=== PATIENT | male | born 1970 | race Caucasian/White ===

== ENCOUNTER 2017-05-16 20:18 | Inpatient (IN) | payer MEDICAID ==
[2017-05-16 20:19] VITALS: BMI 27.2
--- NOTE | 2017-05-16 20:49 | ED PDOC ---
HPI: SOB/CHF/COPD History Per: Patient <Socorro Adhikari - Last Filed: 05/16/17 22:02> <Darci Briseno - Last Filed: 05/17/17 04:58> Time Seen by Provider: 05/16/17 20:24 Chief Complaint (Nursing): Shortness Of Breath Additional Complaint(s): 46M BIBA for LEFT chest pain that he reports is sharp and worsens with deep inspiration with associated dizziness, SOB, and headache. He denies fever, chills, cough, N, V, and last BM today. Recently at [facility] for chest pain and underwent abdominal paracentesis for 4L. PMH: DM, HTN, AICD, stent (15yrs ago), Liver cirrhosis PSH: AICD, Appendectomy ALL: NKDA PREETHI: No Homeless Smoke: 10-12cigs/day Alcohol: 3-4 beers, 1.5 pints of vodka (Socorro Adhikari) Past Medical History - Medical History PMH: CAD, CHF, COPD, Diabetes, Emphysema, HTN, Hypercholesterolemia, Hyperlipidemia, Peripheral Edema Denies: Chronic Kidney Disease - Surgical History Surgical History: Appendectomy, Coronary Stent (15 yrs ago), Pacemaker (AICD Left) - Family History Family History: States: Unknown Family Hx - Immunization History Hx Tetanus Toxoid Vaccination: Yes Hx Influenza Vaccination: Yes Hx Pneumococcal Vaccination: Yes <Socorro Adhikari - Last Filed: 05/16/17 22:02> <Darci Briseno - Last Filed: 05/17/17 04:58> Vital Signs: Last Vital Signs Temp 97.7 F 05/16/17 23:15 Pulse 70 05/16/17 23:38 Resp 10 L 05/16/17 23:38 BP 94/60 L 05/16/17 23:15 Pulse Ox 97 05/16/17 23:38 - Home Medications Home Medications: Ambulatory Orders Medication Instructions Recorded No Known Home Med 05/16/17 - Allergies Allergies/Adverse Reactions: Allergies Allergy/AdvReac Type Severity Reaction Status Date / Time No Known Allergies Allergy Verified 05/11/17 19:18 Curb-65 Severity Score - CURB-65 Severity Score Confusion: No Bun >19mg/dl (>7mmol/L): No Respiratory Rate greater than/equal to 30: No Systolic BP <90 or Diastolic BP less than/equal 60mmHg: Yes Age >64: No Curb-65 Score: 1 Percentage 30-day mortality: 2.7% <NicolaSocorro zhang - Last Filed: 05/16/17 22:02> Wells Criteria for PE - Wells Criteria for Pulmonary Embolism Clinical Signs and Symptoms of DVT: No P.E is #1 Diagnosis, or Equally Likely: No Heart Rate >100: Yes Immobilization at least 3 days;Surgery previous 4 weeks: No Previous, objectively diagnosed PE or DVT: No Hemoptysis: No Malignancy w/treatment within 6 months, or palliative: No Total Score: 1.5 <NicolaleathaSocorro - Last Filed: 05/16/17 22:02> Review of Systems Constitutional: Negative for: Fever, Chills Cardiovascular: Positive for: Chest Pain (sharp, radiating, worse with inspiration). Negative for: Palpitations Respiratory: Positive for: Pleuritic Pain ( ). Negative for: Cough Gastrointestinal: Positive for: Abdominal Pain (mild, right-sided with fluid wave). Negative for: Nausea, Vomiting Genitourinary Male: Negative for: Dysuria Musculoskeletal: Positive for: Neck Pain, Shoulder Pain Neurological: Negative for: Confusion <NicolaleathaSocorro - Last Filed: 05/16/17 22:02> Physical Exam - Reviewed Vital Signs Reviewed: Yes (improving) - Physical Exam Appears: Positive for: Non-toxic, No Acute Distress Head Exam: Positive for: ATRAUMATIC, NORMAL INSPECTION Skin: Positive for: Warm, Dry Eye Exam: Positive for: EOMI, PERRL, Nystagmus (horizontal) ENT: Positive for: Other (Alcohol on breath) Neck: Positive for: Supple Cardiovascular/Chest: Positive for: Chest Non Tender. Negative for: Regular Rate, Rhythm (AICD), JVD Respiratory: Positive for: Normal Breath Sounds. Negative for: Rales, Wheezing , Respiratory Distress Pulses-Dorsalis Pedis (L): 2+ Pulses-Dorsalis Pedis (R): 2+ Pulses-Post. Tibialis (L): 2+ Pulses-Post. Tibialis (R): 2+ Gastrointestinal/Abdominal: Positive for: Bowel Sounds, Soft, Tenderness (mild) , Asicites. Negative for: Guarding, Rebound, Hernia Extremity: Positive for: Pedal Edema (pitting 1+, b/l up to knee), Capillary Refill Neurologic/Psych: Positive for: Alert (intoxicated) <Socorro Adhikari - Last Filed: 05/16/17 22:02> - Laboratory Results Result Diagrams: 05/16/17 20:40 05/16/17 20:40 - ECG O2 Sat by Pulse Oximetry: 94 <Socorro Adhikari - Last Filed: 05/16/17 22:02> - Laboratory Results Result Diagrams: 05/16/17 20:40 05/16/17 20:40 - Critical Care Total Time (In Min): 30 <Darci Briseno - Last Filed: 05/17/17 04:58> Medical Decision Making <Socorro Adhikari - Last Filed: 05/16/17 22:02> <Darci Briseno - Last Filed: 05/17/17 04:58> Medical Decision MakinM chronic alcoholic abuse BIBA for LEFT chest pain and hypotension. Patient is intoxicated, but given current SIRS will evaluate for infectious vs. volume depletion secondary to intoxication. - CBC, PT/PTT/INR, CMP, Ammonia, BNP, Troponin, Utox/UA - CXR - 1L NS bolus - EKG CXR: when compared to 05/11/17 no significant changes. Alcohol: 255 BP improved to baseline with fluid bolus, but still unable to provide urine sample BNP elevated Ammonia WNL (Socorro Adhikari) Disposition - Patient ED Disposition Is Patient to be Admitted: Yes Discussed With Dr.: William Kuo Comment: Spoke with Dr Mckenna as well. Doctor Will See Patient In The: Hospital Counseled Patient/Family Regarding: Studies Performed - Disposition Disposition Time: 21:55 - Pt Status Changed To: Hospital Disposition Of: Inpatient - Admit Certification Admit to Inpatient:: After my assessment, the patient will require hospitalization for at least two midnights. This is because of the severity of symptoms shown, intensity of services needed, and/or the medical risk in this patient being treated as an outpatient. <Socorro Adhikari - Last Filed: 05/16/17 22:02> <Darci Briseno - Last Filed: 05/17/17 04:58> - Clinical Impression Clinical Impression: Chest pain, Alcohol intoxication, Chest pain, Ascites due to alcoholic cirrhosis - Disposition Condition: IMPROVED
[2017-05-16 20:56] LABS: BASO # 0.1 K/uL (0.0-0.2); BASO % 1.2 % (0.0-2.0); EOS # 0.2 K/uL (0.0-0.7); EOS % 3.5 % (0.0-4.0); HEMOGLOBIN 11.2 g/dL (12.0-18.0); LYMPH % 20.5 % (20.0-40.0); MEAN CELL VOLUME 101.9 fl (80.0-94.0); MEAN CORPUSCULAR HGB CONC 34.3 g/dL (33.0-37.0); MEAN PLATELET VOLUME 8.5 fl (7.2-11.7); MONO # 0.8 K/uL (0.0-0.8); MONO % 17.7 % (0.0-10.0); NEUT # 2.7 K/uL (1.8-7.0); NEUT % 57.1 % (50.0-75.0); NRBC % 0.1 % (0.0-0.0); RBC 3.21 Mil/uL (4.40-5.90); RED CELL DISTRIBUTION WIDTH 15.9 % (11.5-14.5); WHITE BLOOD COUNT 4.8 K/uL (4.8-10.8)
[2017-05-16] MEDS ORDERED: Sodium Chloride 0.9% 1,000 ML IV SCH (21:00)
[2017-05-16 21:05] LABS: ALB/GLOB RATIO 0.8 (1.0-2.1); ALBUMIN 3.1 g/dL (3.5-5.0); ALT/SGPT 69 U/L (21-72); AST/SGOT 124 U/L (17-59); BLOOD UREA NITROGEN 11 mg/dl (9-20); CALCIUM 8.6 mg/dL (8.4-10.2); GFR AFRICAN-AMERICAN > 60; GFR NON-AFRICAN AMERICAN > 60; LIPASE 223 U/L (23-300)
--- NOTE | 2017-05-16 21:08 | RAD ---
HISTORY: chest pain COMPARISON: None available. TECHNIQUE: Chest, one view. FINDINGS: Examination limited by habitus. LUNGS: Bilateral hilar prominence, right greater than left. No focal consolidation. Please note that chest x-ray has limited sensitivity for the detection of pulmonary masses. PLEURA: No significant pleural effusion identified. No definite pneumothorax . CARDIOVASCULAR: Single lead left-sided AICD. Heart size appears top normal. OSSEOUS STRUCTURES: No acute osseous abnormality identified. VISUALIZED UPPER ABDOMEN: Unremarkable. OTHER FINDINGS: None. IMPRESSION: Bilateral hilar prominence, right greater than left. Single lead AICD.
--- NOTE | 2017-05-16 21:57 | CP.PCM.CON ---
History of Present Illness - History of Present Illness History of Present Illness: CC: Chest pain, EtOH intoxication, volume depletion History mostly obtained from chart and ER staff as patient did not engage in interview likely 2/2 intoxication. HPI: 46 y/o male with MHx significant for CAD, CHF (EF 29% 3/ Echo) with AICD , DM2, HTN and EtOH abuse with cirrhosis who comes in with sharp mid-sternal CP that is worse with inspiration. Patient has some SOB. Denies f/c/n/v/d. Denies cough/sputum production. Patient does not provide any history and has no complaints. Was at [facility] for CP, and had paracentesis with removal of 4 L. Patient is homeless. ROS: unable to perform as patient refusing to answer Q MHx: CAD, CHF (EF 29% / Echo) with AICD, DM2, HTN and EtOH abuse with cirrhosis SHx: Cath/Stents, AICD, appendectomy, and multiple paracenteses Allergies: NKDA Medications: None FHx: Cannot be obtained Social Hx: Homeless, smokes 10-15 cigs per day, has been drinking for 30+ years , nad has about 1/2-1 pt of vodka daily Past Patient History - Infectious Disease Hx of Infectious Diseases: None - Past Medical History & Family History Past Medical History?: Yes - Past Social History Smoking Status: Heavy Smoker > 10 Cigarettes Daily - CARDIAC Hx Congestive Heart Failure: Yes Hx Hypercholesterolemia: Yes Hx Hypertension: Yes Hx Pacemaker: Yes (AICD Left) Hx Peripheral Edema: Yes - PULMONARY Hx Chronic Obstructive Pulmonary Disease (COPD): Yes Hx Emphysema: Yes - NEUROLOGICAL Hx Neurological Disorder: Yes Hx Dizziness: Yes - HEENT Hx HEENT Problems: No - RENAL Hx Chronic Kidney Disease: No - ENDOCRINE/METABOLIC Hx Endocrine Disorders: Yes Hx Diabetes Mellitus Type 2: Yes - HEMATOLOGICAL/ONCOLOGICAL Hx Blood Disorders: Yes Hx Cirrhosis: Yes - INTEGUMENTARY Hx Dermatological Problems: Yes Other/Comment: Dry scratch ruano/scab Andrew. lower extremeties and nose - MUSCULOSKELETAL/RHEUMATOLOGICAL Hx Falls: Yes - GASTROINTESTINAL Hx Gastrointestinal Disorders: No Hx Nausea: Yes Hx Vomiting: Yes - GENITOURINARY/GYNECOLOGICAL Hx Genitourinary Disorders: No - PSYCHIATRIC Hx Psychophysiologic Disorder: Yes Hx Substance Use: No (etoh abuse-) - SURGICAL HISTORY Hx Appendectomy: Yes Hx Coronary Stent: Yes (15 yrs ago) - ANESTHESIA Hx Anesthesia: Yes Hx Anesthesia Reactions: No Hx Malignant Hyperthermia: No Meds Allergies/Adverse Reactions: Allergies Allergy/AdvReac Type Severity Reaction Status Date / Time No Known Allergies Allergy Verified 05/11/17 19:18 - Medications Medications: Current Medications Sodium Chloride (Sodium Chloride 0.9%) 1,000 mls @ 999 mls/hr IV .Q1H1M KATELYN Stop: 05/16/17 22:00 Last Admin: 05/16/17 21:13 Dose: 999 mls/hr Physical Exam - Constitutional Appears: Unkempt, Older Than Stated Age Additional comments: intoxicated - Head Exam Head Exam: ATRAUMATIC, NORMOCEPHALIC - Eye Exam Eye Exam: EOMI, PERRL - ENT Exam ENT Exam: Mucous Membranes Dry - Neck Exam Neck exam: Positive for: Full Rom - Respiratory Exam Respiratory Exam: Clear to Auscultation Bilateral, NORMAL BREATHING PATTERN - Cardiovascular Exam Cardiovascular Exam: REGULAR RHYTHM, +S1, +S2 - GI/Abdominal Exam GI & Abdominal Exam: Normal Bowel Sounds, Soft - Extremities Exam Extremities exam: Positive for: full ROM, pedal edema - Neurological Exam Neurological exam: Alert, CN II-XII Intact, Oriented x3 Additional comments: patient awakens, but is intoxicated; can answer questions when he feels like - Psychiatric Exam Psychiatric exam: Normal Affect, Normal Mood - Skin Skin Exam: Dry, Warm Results - Vital Signs Recent Vital Signs: Last Vital Signs Temp 98.2 F 05/16/17 20:20 Pulse 72 05/16/17 21:46 Resp 20 05/16/17 20:20 BP 92/58 L 05/16/17 21:46 Pulse Ox 94 L 05/16/17 21:56 - Labs Result Diagrams: 05/16/17 20:40 05/16/17 20:40 Labs: Laboratory Results - last 24 hr 05/16/17 05/16/17 05/16/17 20:40 20:40 20:57 WBC 4.8 RBC 3.21 L Hgb 11.2 L Hct 32.7 L MCV 101.9 H MCH 35.0 H MCHC 34.3 RDW 15.9 H Plt Count 314 MPV 8.5 Neut % (Auto) 57.1 Lymph % (Auto) 20.5 [place] % (Auto) 17.7 H Eos % (Auto) 3.5 Baso % (Auto) 1.2 Neut # 2.7 Lymph # 1.0 [place] # 0.8 Eos # 0.2 Baso # 0.1 Sodium 137 Potassium 4.0 Chloride 109 H Carbon Dioxide 17 L Anion Gap 15 BUN 11 Creatinine 1.1 Est GFR ( Amer) > 60 Est GFR (Non-Af Amer) > 60 Random Glucose 103 Calcium 8.6 Total Bilirubin 1.0 AST 124 H ALT 69 Alkaline Phosphatase 187 H Ammonia 38 NT-Pro-B Natriuret Pep Total Protein 7.2 Albumin 3.1 L Globulin 4.1 H Albumin/Globulin Ratio 0.8 L Lipase 223 Alcohol, Quantitative 255 H 05/16/17 21:20 WBC RBC Hgb Hct MCV MCH MCHC RDW Plt Count MPV Neut % (Auto) Lymph % (Auto) [place] % (Auto) Eos % (Auto) Baso % (Auto) Neut # Lymph # [place] # Eos # Baso # Sodium Potassium Chloride Carbon Dioxide Anion Gap BUN Creatinine Est GFR ( Amer) Est GFR (Non-Af Amer) Random Glucose Calcium Total Bilirubin AST ALT Alkaline Phosphatase Ammonia NT-Pro-B Natriuret Pep 2560 H Total Protein Albumin Globulin Albumin/Globulin Ratio Lipase Alcohol, Quantitative - EKG Data EKG Interpreted by: Myself EKG shows normal: Sinus rhythm Rate: Normal - EKG Data EKG comments: LBBB present from prior EKGs - Imaging and Cardiology Chest x-ray Status: Image reviewed by me (enlarged appearing heart, ICD in place left chest) Assessment & Plan (1) Alcohol intoxication Assessment and Plan: 46 y/o male with multiple medical problems coming in with EtOH intoxication, CP , and volume depletion it appears. 1) CP -Admitting to ICU 2/2 low BP -serial trops -ASA daily 325 2) Vol depletion in setting of EtOH abuse -Will replete with banana bag at low rate given CHF Hx -Repeat EtOH level -Observe for signs of w/d 3) CHF -- appears stable at this time 4) DM2 -- DM2 diet, Accucheck, SSI 5) DVT PPx -- SCDs only Status: Acute (2) Volume depletion Status: Acute (3) Chest pain Status: Acute (4) CHF (congestive heart failure) Status: Chronic (5) Diabetes mellitus Status: Chronic
[2017-05-16 23:00] LABS: ABG ALLEN TEST YES; ARTERIAL BLOOD GAS HCO3 19.9 mmol/L (21-28); ARTERIAL BLOOD GAS O2 CAPACITY 14.9 mL/dL (16-24); ARTERIAL BLOOD GAS O2 CONTENT 14.7 ML/dL (15-23); ARTERIAL BLOOD GAS O2 SAT 98.8 % (95-98); ARTERIAL BLOOD GAS PCO2 30 mm/Hg (35-45); ARTERIAL BLOOD GAS PH 7.38 (7.35-7.45); ARTERIAL BLOOD GAS PO2 101 mm/Hg (80-100); ARTERIAL BLOOD GAS TCO2 18.6 mmol/L (22-28)
[2017-05-16 23:06] LABS: TROPONIN I 0.022 ng/mL (0.00-0.120)
[2017-05-16 23:10] LABS: URINE BACTERIA RARE (<OCC); URINE BILIRUBIN NEGATIVE (NEGATIVE); URINE BLOOD NEGATIVE (NEGATIVE); URINE CLARITY CLEAR (Clear); URINE COLOR YELLOW (YELLOW); URINE GLUCOSE (UA) NEG (Normal); URINE HYALINE CAST 0-2 /hpf (0-2); URINE LEUKOCYTE ESTERASE NEG Leu/uL (Negative); URINE NITRATE NEGATIVE (NEGATIVE); URINE PROTEIN NEGATIVE (NEGATIVE); URINE UROBILINOGEN 0.2-1.0 mg/dL (0.2-1.0)
[2017-05-16] MEDS ORDERED: Multivitamin (MVI) 10 ML, Thiamine 100 MG, Folic Acid 1 MG, Magnesium Sulfate 1 GM in S... IV ONE (23:20)
[2017-05-16 23:28] LABS: BARBITURATES, UR NEGATIVE (NEGATIVE); BENZODIAZEPINES, UR NEGATIVE (NEGATIVE); OPIATES, UR NEGATIVE (NEGATIVE); PHENCYCLIDINE, UR NEGATIVE (NEGATIVE)
[2017-05-17 01:15] LABS: PARTIAL THROMBOPLASTIN TIME 34.2 Seconds (25.6-37.1); PROTHROMBIN TIME 11.6 Seconds (9.8-13.1)
[2017-05-17] MEDS ORDERED: Sodium Chloride 0.9% 250 ML IV ONE (04:42)
[2017-05-17] MEDS ORDERED: Insulin Lispro (humaLOG) 100 Units/ml Inj SC SCH (07:30)
[2017-05-17 08:23] LABS: HEMOGLOBIN 10.3 g/dL (12.0-18.0); MEAN CELL VOLUME 104.6 fl (80.0-94.0); MEAN CORPUSCULAR HEMOGLOBIN 34.5 pg (27.0-31.0); RBC 2.98 Mil/uL (4.40-5.90); RED CELL DISTRIBUTION WIDTH 15.7 % (11.5-14.5); WHITE BLOOD COUNT 3.9 K/uL (4.8-10.8)
[2017-05-17 08:25] VITALS: TEMP 98
[2017-05-17 08:28] LABS: ALBUMIN 2.7 g/dL (3.5-5.0); ALT/SGPT 60 U/L (21-72); AST/SGOT 116 U/L (17-59); BLOOD UREA NITROGEN 9 mg/dl (9-20); CALCIUM 8.3 mg/dL (8.4-10.2); GFR AFRICAN-AMERICAN > 60; GFR NON-AFRICAN AMERICAN > 60
[2017-05-17 08:30] LABS: ALB/GLOB RATIO 0.8 (1.0-2.1)
--- NOTE | 2017-05-17 08:42 | CARD ---
APPROVED REPORT EKG Measurement Heart [id number] <Conclusion> Normal sinus rhythm Left bundle branch block Abnormal ECG
--- NOTE | 2017-05-17 09:48 | CP.CCUPN ---
CCU Subjective - Physician Review Events Since Last Encounter (Free Text): Easily arousable from sleep, does not appear overly anxious nor agitated now, he did receive a dose of Ativan early AM. In no apparent acute distress. BP levels still borderline at 95-98 systolic, HR 70s in sinus, No fever spikes. Refuses supplemental oxygen, but SPo2 98% on RA. No I/Os recorded. ROS: as above, other 10+ system review did not reveal any new pertinent negs or positives. Other PMSFH: All other Nursing and physician documentation reviewed, and no other pertinent information noted relevant to current problems. MAJOR PROBLEMS: 1. ETOH Intoxication / Chronic ETOH Abuse 2. r/o ACS 3. Dehydration / Hypovolemia 4. Chronic Disease Anemia 5. h/o Cardiomyopathy requiring AICD: no overt decompensated CHF now. PLAN: 1. IVF bolus and cautious hydration. 2. Trops negative x 2 so far. 3. Thiamine / Folate supplements 4. Monitor for s/sx ETOH withdrawal. 5. Check Mag, Phosphate levels 6. Maintain normoglycemia CCU Objective - Vital Signs / Intake & Output Vital Signs (Last 4 hours): Vital Signs Temp Pulse Resp BP Pulse Ox 05/17/17 08:00 98.0 F 72 25 H 92/56 L 99 05/17/17 06:00 69 8 L 95/59 L 98 - Physical Exam Physical Exam Limitations: Positive for: Intoxication Head: Positive for: Atraumatic, Normocephalic Pupils: Positive for: PERRL Extroacular Muscles: Positive for: EOMI Conjunctiva: Positive for: Normal Ears: Positive for: Normal Mouth: Positive for: Moist Mucous Membranes. Negative for: Drooling Pharnyx: Positive for: Normal. Negative for: ERYTHEMA, EXUDATE Neck: Positive for: Normal Range of Motion. Negative for: Meningeal Signs, JVD Respiratory/Chest: Positive for: Clear to Auscultation, Decreased Breath Sounds. Negative for: Accessory Muscle Use Cardiovascular: Positive for: Regular Rate and Rhythm, Normal S1, S2. Negative for: Murmurs, Rub Abdomen: Positive for: Distention (+ fluid wave), Normal Bowel Sounds. Negative for: Tenderness Lower Extremity: Positive for: Edema. Negative for: CALF TENDERNESS, Cyanosis Neurological: Positive for: GCS=15, Motor Func Grossly Intact Skin: Positive for: Warm. Negative for: Rashes Psychiatric: Positive for: Alert, Oriented x 3 - Medications Active Medications: Active Medications Generic Name Dose Route Start Last Admin Trade Name Freq PRN Reason Stop Dose Admin Multivitamins/Vitamin C 10 ml/ 1,013.2 mls @ 75 mls/hr 05/16/17 23:20 00:48 Thiamine HCl 100 mg/ Folic IV 05/17/17 12:50 75 mls/hr Acid 1 mg/ Magnesium Sulfate 1 .[id number] ONE Administration gm/ Sodium Chloride Insulin Human Lispro 0 units 05/17/17 07:30 05/17/17 06:59 Humalog SC Not Given ACHS KATELYN Protocol Lorazepam 1 mg 05/16/17 23:55 05/17/17 00:03 Ativan IVP 1 mg Q6H PRN Administration anxiety, tremors, withdrawal - Patient Studies Lab Studies: Lab Studies 05/17/17 05/17/17 05/17/17 Range/Units 06:34 05:30 05:30 WBC 3.9 L (4.8-10.8) K/uL RBC 2.98 L (4.40-5.90) Mil/uL Hgb 10.3 L (12.0-18.0) g/dL Hct 31.2 L (35.0-51.0) % MCV 104.6 H D (80.0-94.0) fl MCH 34.5 H (27.0-31.0) pg MCHC 33.0 (33.0-37.0) g/dL RDW 15.7 H (11.5-14.5) % Plt Count 211 D (130-400) K/uL pCO2 (35-45) mm/Hg pO2 (80-100) mm/Hg HCO3 (21-28) mmol/L ABG pH (7.35-7.45) ABG Total CO2 (22-28) mmol/L ABG O2 Saturation (95-98) % ABG O2 Content (15-23) ML/dL ABG Base Excess (-2.0-3.0) mmol/L ABG Hemoglobin (11.7-17.4) g/dL ABG Carboxyhemoglobin (0.5-1.5) % POC ABG HHb (Measured) (0.0-5.0) % ABG Methemoglobin (0.0-3.0) % ABG O2 Capacity (16-24) mL/dL Prabhakar Test A-a O2 Difference mm/Hg Hgb O2 Saturation (95.0-98.0) % FiO2 % Sodium 141 (132-148) mmol/l Potassium 3.8 (3.6-5.0) MMOL/L Chloride 114 H (98-107) mmol/L Carbon Dioxide 19 L (22-30) mmol/L Anion Gap 12 (10-20) BUN 9 (9-20) mg/dl Creatinine 0.9 (0.8-1.5) mg/dL Est GFR ( Amer) > 60 Est GFR (Non-Af Amer) > 60 POC Glucose (mg/dL) 92 (65-110) mg/dL Random Glucose 86 (75-110) mg/dL Calcium 8.3 L (8.4-10.2) mg/dL Total Bilirubin 0.8 (0.2-1.3) mg/dl AST 116 H (17-59) U/L ALT 60 (21-72) U/L Alkaline Phosphatase 158 H (38-126) U/L Troponin I 0.0200 (0.00-0.120) ng/mL Total Protein 6.3 (6.3-8.2) G/DL Albumin 2.7 L (3.5-5.0) g/dL Globulin 3.6 (2.2-3.9) gm/dL Albumin/Globulin Ratio 0.8 L (1.0-2.1) Urine Color (YELLOW) Urine Clarity (Clear) Urine pH (5.0-8.0) Ur Specific [place] (1.003-1.030) Urine Protein (NEGATIVE) mg/dL Urine Glucose (UA) (Normal) mg/dL Urine Ketones (NEGATIVE) mg/dL Urine Blood (NEGATIVE) Urine Nitrate (NEGATIVE) Urine Bilirubin (NEGATIVE) Urine Urobilinogen (0.2-1.0) mg/dL Ur Leukocyte Esterase (Negative) Sherie/uL Urine RBC (Auto) (0-3) /hpf Urine Microscopic WBC (0-5) /hpf Urine Bacteria (<OCC) Hyaline Casts (0-2) /hpf Urine Opiates Screen (NEGATIVE) Urine Methadone Screen (NEGATIVE) Ur Barbiturates Screen (NEGATIVE) Ur Phencyclidine Scrn (NEGATIVE) Ur Amphetamines Screen (NEGATIVE) U Benzodiazepines Scrn (NEGATIVE) U Oth Cocaine Metabols (NEGATIVE) U Cannabinoids Screen (NEGATIVE) Alcohol, Quantitative 102 H (0-10) mg/dl 05/16/17 05/16/17 05/16/17 Range/Units 23:02 23:02 21:58 WBC (4.8-10.8) K/uL RBC (4.40-5.90) Mil/uL Hgb (12.0-18.0) g/dL Hct (35.0-51.0) % MCV (80.0-94.0) fl MCH (27.0-31.0) pg MCHC (33.0-37.0) g/dL RDW (11.5-14.5) % Plt Count (130-400) K/uL pCO2 30 L (35-45) mm/Hg pO2 101 H (80-100) mm/Hg HCO3 19.9 L (21-28) mmol/L ABG pH 7.38 (7.35-7.45) ABG Total CO2 18.6 L (22-28) mmol/L ABG O2 Saturation 98.8 H (95-98) % ABG O2 Content 14.7 L (15-23) ML/dL ABG Base Excess -6.4 L (-2.0-3.0) mmol/L ABG Hemoglobin 11.0 L (11.7-17.4) g/dL ABG Carboxyhemoglobin 2.2 H (0.5-1.5) % POC ABG HHb (Measured) 1.1 (0.0-5.0) % ABG Methemoglobin 2.8 (0.0-3.0) % ABG O2 Capacity 14.9 L (16-24) mL/dL Prabhakar Test Yes A-a O2 Difference 11.0 mm/Hg Hgb O2 Saturation 93.9 L (95.0-98.0) % FiO2 21.0 % Sodium (132-148) mmol/l Potassium (3.6-5.0) MMOL/L Chloride (98-107) mmol/L Carbon Dioxide (22-30) mmol/L Anion Gap (10-20) BUN (9-20) mg/dl Creatinine (0.8-1.5) mg/dL Est GFR ( Amer) Est GFR (Non-Af Amer) POC Glucose (mg/dL) (65-110) mg/dL Random Glucose (75-110) mg/dL Calcium (8.4-10.2) mg/dL Total Bilirubin (0.2-1.3) mg/dl AST (17-59) U/L ALT (21-72) U/L Alkaline Phosphatase (38-126) U/L Troponin I (0.00-0.120) ng/mL Total Protein (6.3-8.2) G/DL Albumin (3.5-5.0) g/dL Globulin (2.2-3.9) gm/dL Albumin/Globulin Ratio (1.0-2.1) Urine Color Yellow (YELLOW) Urine Clarity Clear (Clear) Urine pH 6.0 (5.0-8.0) Ur Specific [place] 1.006 (1.003-1.030) Urine Protein Negative (NEGATIVE) mg/dL Urine Glucose (UA) Neg (Normal) mg/dL Urine Ketones Negative (NEGATIVE) mg/dL Urine Blood Negative (NEGATIVE) Urine Nitrate Negative (NEGATIVE) Urine Bilirubin Negative (NEGATIVE) Urine Urobilinogen 0.2-1.0 (0.2-1.0) mg/dL Ur Leukocyte Esterase Neg (Negative) Sherie/uL Urine RBC (Auto) 3 (0-3) /hpf Urine Microscopic WBC 1 (0-5) /hpf Urine Bacteria Rare (<OCC) Hyaline Casts 0-2 (0-2) /hpf Urine Opiates Screen Negative (NEGATIVE) Urine Methadone Screen Negative (NEGATIVE) Ur Barbiturates Screen Negative (NEGATIVE) Ur Phencyclidine Scrn Negative (NEGATIVE) Ur Amphetamines Screen Negative (NEGATIVE) U Benzodiazepines Scrn Negative (NEGATIVE) U Oth Cocaine Metabols Negative (NEGATIVE) U Cannabinoids Screen Negative (NEGATIVE) Alcohol, Quantitative (0-10) mg/dl Laboratory Results - last 24 hr 05/16/17 05/16/17 05/16/17 21:58 23:02 23:02 WBC RBC Hgb Hct MCV MCH MCHC RDW Plt Count pCO2 30 L pO2 101 H HCO3 19.9 L ABG pH 7.38 ABG Total CO2 18.6 L ABG O2 Saturation 98.8 H ABG O2 Content 14.7 L ABG Base Excess -6.4 L ABG Hemoglobin 11.0 L ABG Carboxyhemoglobin 2.2 H POC ABG HHb (Measured) 1.1 ABG Methemoglobin 2.8 ABG O2 Capacity 14.9 L Prabhakar Test Yes A-a O2 Difference 11.0 Hgb O2 Saturation 93.9 L FiO2 21.0 Sodium Potassium Chloride Carbon Dioxide Anion Gap BUN Creatinine Est GFR ( Amer) Est GFR (Non-Af Amer) POC Glucose (mg/dL) Random Glucose Calcium Total Bilirubin AST ALT Alkaline Phosphatase Troponin I Total Protein Albumin Globulin Albumin/Globulin Ratio Urine Color Yellow Urine Clarity Clear Urine pH 6.0 Ur Specific [place] 1.006 Urine Protein Negative Urine Glucose (UA) Neg Urine Ketones Negative Urine Blood Negative Urine Nitrate Negative Urine Bilirubin Negative Urine Urobilinogen 0.2-1.0 Ur Leukocyte Esterase Neg Urine RBC (Auto) 3 Urine Microscopic WBC 1 Urine Bacteria Rare Hyaline Casts 0-2 Urine Opiates Screen Negative Urine Methadone Screen Negative Ur Barbiturates Screen Negative Ur Phencyclidine Scrn Negative Ur Amphetamines Screen Negative U Benzodiazepines Scrn Negative U Oth Cocaine Metabols Negative U Cannabinoids Screen Negative Alcohol, Quantitative 05/17/17 05/17/17 05/17/17 05:30 05:30 06:34 WBC 3.9 L RBC 2.98 L Hgb 10.3 L Hct 31.2 L MCV 104.6 H D MCH 34.5 H MCHC 33.0 RDW 15.7 H Plt Count 211 D pCO2 pO2 HCO3 ABG pH ABG Total CO2 ABG O2 Saturation ABG O2 Content ABG Base Excess ABG Hemoglobin ABG Carboxyhemoglobin POC ABG HHb (Measured) ABG Methemoglobin ABG O2 Capacity Prabhakar Test A-a O2 Difference Hgb O2 Saturation FiO2 Sodium 141 Potassium 3.8 Chloride 114 H Carbon Dioxide 19 L Anion Gap 12 BUN 9 Creatinine 0.9 Est GFR ( Amer) > 60 Est GFR (Non-Af Amer) > 60 POC Glucose (mg/dL) 92 Random Glucose 86 Calcium 8.3 L Total Bilirubin 0.8 AST 116 H ALT 60 Alkaline Phosphatase 158 H Troponin I 0.0200 Total Protein 6.3 Albumin 2.7 L Globulin 3.6 Albumin/Globulin Ratio 0.8 L Urine Color Urine Clarity Urine pH Ur Specific [place] Urine Protein Urine Glucose (UA) Urine Ketones Urine Blood Urine Nitrate Urine Bilirubin Urine Urobilinogen Ur Leukocyte Esterase Urine RBC (Auto) Urine Microscopic WBC Urine Bacteria Hyaline Casts Urine Opiates Screen Urine Methadone Screen Ur Barbiturates Screen Ur Phencyclidine Scrn Ur Amphetamines Screen U Benzodiazepines Scrn U Oth Cocaine Metabols U Cannabinoids Screen Alcohol, Quantitative 102 H Radiology Interpretations (Free Text): (my interp) Clear lung mckeon, AICD overlying Left upper chest, no gross consolidation. Fingerstick Blood Sugar Results: 96 Review of Systems - Review of Systems Review of Systems: As above. Critical Care Progress Note - Extremities/Vascular Does the Patient have a Central Venous Catheter?: No Does the Patient need a Central Venous Catheter?: No Does the Patient have a Fontenot Catheter?: No Does the Patient need a Fontenot Catheter?: No - Prophylaxis GI Prophylaxis GI: PPI - Prophylaxis DVT Prophylaxis DVT: SCDs - Nutrition Nutrition: Nutrition Category Date Time Status Consistent Carbohydrate [DIET] Diets 05/16/17 Breakfast Active
[2017-05-17 10:08] VITALS: BP 106/76; PULSE 90; RESP 19; O2SAT 100
--- NOTE | 2017-05-17 10:42 | CP.PCM.DIS ---
Provider - Provider Date of Admission: 05/16/17 21:45 Attending physician: Dg Mckenna MD Time Spent in preparation of Discharge (in minutes): 32 Diagnosis - Discharge Diagnosis (1) Alcohol intoxication Status: Acute (2) Ascites due to alcoholic cirrhosis Status: Acute (3) Chest pain Status: Acute (4) Volume depletion Status: Acute (5) Hypotension Status: Acute (6) Diabetes mellitus Status: Chronic (7) HTN (hypertension) Status: Chronic Hospital Course - Lab Results Lab Results: Most Recent Lab Values WBC 3.9 K/uL (4.8-10.8) L 05/17/17 05:30 RBC 2.98 Mil/uL (4.40-5.90) L 05/17/17 05:30 Hgb 10.3 g/dL (12.0-18.0) L 05/17/17 05:30 Hct 31.2 % (35.0-51.0) L 05/17/17 05:30 MCV 104.6 fl (80.0-94.0) H D 05/17/17 05:30 MCH 34.5 pg (27.0-31.0) H 05/17/17 05:30 MCHC 33.0 g/dL (33.0-37.0) 05/17/17 05:30 RDW 15.7 % (11.5-14.5) H 05/17/17 05:30 Plt Count 211 K/uL (130-400) D 05/17/17 05:30 MPV 8.5 fl (7.2-11.7) 05/16/17 20:40 Neut % (Auto) 57.1 % (50.0-75.0) 05/16/17 20:40 Lymph % (Auto) 20.5 % (20.0-40.0) 05/16/17 20:40 [place] % (Auto) 17.7 % (0.0-10.0) H 05/16/17 20:40 Eos % (Auto) 3.5 % (0.0-4.0) 05/16/17 20:40 Baso % (Auto) 1.2 % (0.0-2.0) 05/16/17 20:40 Neut # 2.7 K/uL (1.8-7.0) 05/16/17 20:40 Lymph # 1.0 K/uL (1.0-4.3) 05/16/17 20:40 [place] # 0.8 K/uL (0.0-0.8) 05/16/17 20:40 Eos # 0.2 K/uL (0.0-0.7) 05/16/17 20:40 Baso # 0.1 K/uL (0.0-0.2) 05/16/17 20:40 PT 11.6 Seconds (9.8-13.1) 05/16/17 20:40 INR 1.0 (0.9-1.2) 05/16/17 20:40 APTT 34.2 Seconds (25.6-37.1) 05/16/17 20:40 pCO2 30 mm/Hg (35-45) L 05/16/17 21:58 pO2 101 mm/Hg (80-100) H 05/16/17 21:58 HCO3 19.9 mmol/L (21-28) L 05/16/17 21:58 ABG pH 7.38 (7.35-7.45) 05/16/17 21:58 ABG Total CO2 18.6 mmol/L (22-28) L 05/16/17 21:58 ABG O2 Saturation 98.8 % (95-98) H 05/16/17 21:58 ABG O2 Content 14.7 ML/dL (15-23) L 05/16/17 21:58 ABG Base Excess -6.4 mmol/L (-2.0-3.0) L 05/16/17 21:58 ABG Hemoglobin 11.0 g/dL (11.7-17.4) L 05/16/17 21:58 ABG Carboxyhemoglobin 2.2 % (0.5-1.5) H 05/16/17 21:58 POC ABG HHb (Measured) 1.1 % (0.0-5.0) 05/16/17 21:58 ABG Methemoglobin 2.8 % (0.0-3.0) 05/16/17 21:58 ABG O2 Capacity 14.9 mL/dL (16-24) L 05/16/17 21:58 Prabhakar Test Yes 05/16/17 21:58 A-a O2 Difference 11.0 mm/Hg 05/16/17 21:58 Hgb O2 Saturation 93.9 % (95.0-98.0) L 05/16/17 21:58 FiO2 21.0 % 05/16/17 21:58 Sodium 141 mmol/l (132-148) 05/17/17 05:30 Potassium 3.8 MMOL/L (3.6-5.0) 05/17/17 05:30 Chloride 114 mmol/L (98-107) H 05/17/17 05:30 Carbon Dioxide 19 mmol/L (22-30) L 05/17/17 05:30 Anion Gap 12 (10-20) 05/17/17 05:30 BUN 9 mg/dl (9-20) 05/17/17 05:30 Creatinine 0.9 mg/dL (0.8-1.5) 05/17/17 05:30 Est GFR ( Amer) > 60 05/17/17 05:30 Est GFR (Non-Af Amer) > 60 05/17/17 05:30 POC Glucose (mg/dL) 92 mg/dL (65-110) 05/17/17 06:34 Random Glucose 86 mg/dL (75-110) 05/17/17 05:30 Calcium 8.3 mg/dL (8.4-10.2) L 05/17/17 05:30 Total Bilirubin 0.8 mg/dl (0.2-1.3) 05/17/17 05:30 AST 116 U/L (17-59) H 05/17/17 05:30 ALT 60 U/L (21-72) 05/17/17 05:30 Alkaline Phosphatase 158 U/L (38-126) H 05/17/17 05:30 Ammonia 38 umo/L (16-60) 05/16/17 20:57 Troponin I 0.0200 ng/mL (0.00-0.120) 05/17/17 05:30 NT-Pro-B Natriuret Pep 2560 pg/ml (0-450) H 05/16/17 21:20 Total Protein 6.3 G/DL (6.3-8.2) 05/17/17 05:30 Albumin 2.7 g/dL (3.5-5.0) L 05/17/17 05:30 Globulin 3.6 gm/dL (2.2-3.9) 05/17/17 05:30 Albumin/Globulin Ratio 0.8 (1.0-2.1) L 05/17/17 05:30 Lipase 223 U/L (23-300) 05/16/17 20:40 Urine Color Yellow (YELLOW) 05/16/17 23:02 Urine Clarity Clear (Clear) 05/16/17 23:02 Urine pH 6.0 (5.0-8.0) 05/16/17 23:02 Ur Specific [place] 1.006 (1.003-1.030) 05/16/17 23:02 Urine Protein Negative mg/dL (NEGATIVE) 05/16/17 23:02 Urine Glucose (UA) Neg mg/dL (Normal) 05/16/17 23:02 Urine Ketones Negative mg/dL (NEGATIVE) 05/16/17 23:02 Urine Blood Negative (NEGATIVE) 05/16/17 23:02 Urine Nitrate Negative (NEGATIVE) 05/16/17 23:02 Urine Bilirubin Negative (NEGATIVE) 05/16/17 23:02 Urine Urobilinogen 0.2-1.0 mg/dL (0.2-1.0) 05/16/17 23:02 Ur Leukocyte Esterase Neg [place]/uL (Negative) 05/16/17 23:02 Urine RBC (Auto) 3 /hpf (0-3) 05/16/17 23:02 Urine Microscopic WBC 1 /hpf (0-5) 05/16/17 23:02 Urine Bacteria Rare (<OCC) 05/16/17 23:02 Hyaline Casts 0-2 /hpf (0-2) 05/16/17 23:02 Urine Opiates Screen Negative (NEGATIVE) 05/16/17 23:02 Urine Methadone Screen Negative (NEGATIVE) 05/16/17 23:02 Ur Barbiturates Screen Negative (NEGATIVE) 05/16/17 23:02 Ur Phencyclidine Scrn Negative (NEGATIVE) 05/16/17 23:02 Ur Amphetamines Screen Negative (NEGATIVE) 05/16/17 23:02 U Benzodiazepines Scrn Negative (NEGATIVE) 05/16/17 23:02 U Oth Cocaine Metabols Negative (NEGATIVE) 05/16/17 23:02 U Cannabinoids Screen Negative (NEGATIVE) 05/16/17 23:02 Alcohol, Quantitative 102 mg/dl (0-10) H 05/17/17 05:30 - Hospital Course Hospital Course: ALERT AND ORIENTED X 3 FEEL WELL NO APPARENT DISTRESS Discharge Exam - Head Exam Head Exam: ATRAUMATIC, NORMOCEPHALIC - Eye Exam Eye Exam: EOMI, Normal appearance, PERRL Pupil Exam: NORMAL ACCOMODATION, PERRL - GI/Abdominal Exam GI & Abdominal Exam: Distended, Normal Bowel Sounds - Rectal Exam Rectal Exam: NORMAL INSPECTION - Extremities Exam Extremities exam: pedal edema - Neurological Exam Neurological exam: Alert, CN II-XII Intact, Normal Gait, Oriented x3, Reflexes Normal - Psychiatric Exam Psychiatric exam: Normal Affect, Normal Mood - Skin Skin Exam: Dry, Intact, Normal Color, Warm Discharge Plan - Follow Up Plan Condition: IMPROVED Disposition: HOME/ ROUTINE Additional Instructions: PT SIGNED OUT AGAINST MEDICAL ADVISE
--- NOTE | 2017-05-18 04:50 | HP ---
HISTORY OF PRESENT ILLNESS: Mr. Jimenes is a 46-year-old male, who was admitted via the emergency room because of chest discomfort and found to be hypotensive. He is a chronic alcoholic, who lives in *------* [place] and has been admitted several times to [facility]. Last admission had an abdominal paracentesis with drainage of 4 liters of fluid. He was admitted through intensive care unit, where he was hydrated and his blood pressure stabilized. He refused to stay in hospital and wants to sign out against medical advise. PAST MEDICAL HISTORY: Remarkable for chronic alcoholism, congestive heart failure with ejection fraction of 29%, coronary artery disease status post AICD placement, diabetic, hypertensive, and chronic alcoholic. He also had cardiac stents placed in the past, had an appendectomy and multiple paracentesis. FAMILY HISTORY: Not revealing. SOCIAL HISTORY: He continues to drink heavily. Indicates that he drank 2 pints of vodka on the day of admission and has smoked cigarette. Does not use drugs. PHYSICAL EXAMINATION GENERAL: The patient is alert and oriented. He is in no apparent distress at present, oriented to person, place and time. VITAL SIGNS: Blood pressure 106/76, pulse is 90, respiratory rate is 19. He is afebrile. O2 sats 100% on room air. SKIN: Shows fair turgor. HEENT: Pupils equal, reactive to light and accommodation. JVP flat. Mouth shows fair hygiene. LUNGS: Clear. HEART: Regular. No murmurs or gallops. ABDOMEN: Distended with ascites. EXTREMITIES: 2+ pedal edema. CENTRAL NERVOUS SYSTEM: Grossly intact. LABORATORY DATA: Remarkable for WBC of 3.9, hemoglobin 10.3, platelet count of 211,000. Sodium 141, potassium 3.8, BUN 9, creatinine 0.9. AST 116, ALT 60, troponin 0.0200. Chest x-ray, bi-hilar prominence, right greater than left. AICD noted in place. EKG, normal sinus rhythm, left bundle branch block. IMPRESSION: Alcohol intoxication with dehydration, chest pain appears to be noncardiac, history of congestive heart failure in the past, history of diabetes mellitus, history of chronic alcoholism. PLAN: Monitor the patient in intensive care unit, but the patient refuses to stay. He understands the risk and benefits of the decision to sign out against medical advice; however, he indicates he is going back to [place] today because he has a job offer and does not want to stay in hospital in [place], he signed out against medical advice despite urging to stay. Dg Mckenna MD
== END 2017-05-17 10:15 | disposition left against medical advice (07) | DRG 202 ==
LOC: H.ER 20:18 → H.ERHOLD 21:45 → H.ICU/CCU 23:37
PROVIDERS: ADMIT Internal Medicine Pulmonary Disease; ATTEND Internal Medicine Pulmonary Disease
DX: K70.31 Alcoholic cirrhosis of liver with ascites (principal); I11.0 Hypertensive heart disease with heart failure; I95.9 Hypotension, unspecified; I50.9 Heart failure, unspecified; E86.9 Volume depletion, unspecified; E86.0 Dehydration; J44.9 Chronic obstructive pulmonary disease, unspecified; F10.229 Alcohol dependence with intoxication, unspecified; E11.9 Type 2 diabetes mellitus without complications; E78.00 Pure hypercholesterolemia, unspecified; E78.5 Hyperlipidemia, unspecified; I25.10 Atherosclerotic heart disease of native coronary artery without angina pectoris; Z59.0 Homelessness; F17.210 Nicotine dependence, cigarettes, uncomplicated; Z90.49 Acquired absence of other specified parts of digestive tract; Z95.5 Presence of coronary angioplasty implant and graft; Z95.810 Presence of automatic (implantable) cardiac defibrillator; R07.9 Chest pain, unspecified

== ENCOUNTER 2017-08-24 00:21 | Inpatient (IN) | payer MEDICAID ==
[2017-08-24 00:22] VITALS: BMI 32.3
--- NOTE | 2017-08-24 01:24 | ED PDOC ---
HPI: Chest Pain Chief Complaint (Provider): Chest pain, Headache, Dizziness and whole body swelling History Per: Patient, EMS History/Exam Limitations: intoxication Onset/Duration Of Symptoms: Intermittent Episodes Current Symptoms Are (Timing): Still Present <Meghan Smith - Last Filed: 08/24/17 03:05> <Rodrigo Pack - Last Filed: 08/24/17 05:57> Time Seen by Provider: 08/24/17 00:30 Chief Complaint (Nursing): Chest Pain Additional Complaint(s): 47 y/o homeless male, with PMH of CAD, CHF, left AICD/stent placement, COPD, DM , HTN, HLD, b/l LE venous stasis, alcohol abuse and ascites, brought in by EMS for chest pain, dyspnea, dizziness and whole body pain/swelling. Chest pain started yesterday, which comes and goes, electrical in nature, 9/10 severity, radiates to left shoulder and associated with dizziness, headache and itchiness. pt is also complaining of whole body swelling and abdominal pain which is chronic. PMD: None PMH: CAD, CHF, COPD, DM, HTN, HLD, b/l LE venous stasis, alcohol abuse and ascites PSH: Appendectomy, coronary stent 15 yrs ago, pacemaker (left AICD) Allg: NKDA Meds: Denies SH: Alcohol use 2 pints/day, smoking > 12 cig/day, denies any illicit drug use FH: positive for HTN, HLD, DM and liver problem ROS: As per HPI VS: reviewed (Meghan Smith) Supervising Attending Note - Attestation: I have personally seen and examined this patient.: Yes I have fully participated in the care of the patient.: Yes I have reviewed all pertinent clinical information: Yes <Rodrigo Pack - Last Filed: 08/24/17 05:57> Past Medical History - Medical History PMH: CAD, CHF, COPD, Diabetes, Emphysema, HTN, Hypercholesterolemia, Hyperlipidemia, Peripheral Edema Denies: Chronic Kidney Disease - Surgical History Surgical History: Appendectomy, Coronary Stent (15 yrs ago), Pacemaker (AICD Left) - Family History Family History: States: Unknown Family Hx - Immunization History Hx Tetanus Toxoid Vaccination: Yes Hx Influenza Vaccination: Yes Hx Pneumococcal Vaccination: Yes <Meghan Smith - Last Filed: 08/24/17 03:05> <Rodrigo Pack - Last Filed: 08/24/17 05:57> Vital Signs: Last Vital Signs Temp 97.5 F L 08/24/17 05:21 Pulse 104 H 08/24/17 05:21 Resp 20 08/24/17 05:21 BP 118/78 08/24/17 05:21 Pulse Ox 99 08/24/17 05:21 - Home Medications Home Medications: Ambulatory Orders Medication Instructions Recorded No Known Home Med 08/24/17 - Allergies Allergies/Adverse Reactions: Allergies Allergy/AdvReac Type Severity Reaction Status Date / Time No Known Allergies Allergy Verified 05/27/17 08:42 Physical Exam - Reviewed Nursing Documentation Reviewed: Yes Vital Signs Reviewed: Yes - Physical Exam Appears: Positive for: Uncomfortable Head Exam: Positive for: ATRAUMATIC, NORMAL INSPECTION, NORMOCEPHALIC Skin: Positive for: Normal Color, Dry Eye Exam: Positive for: Normal appearance, EOMI, PERRL. Negative for: Nystagmus Neck: Positive for: Normal, Trachea Midline Cardiovascular/Chest: Positive for: Regular Rate, Rhythm, Chest Non Tender. Negative for: JVD Respiratory: Positive for: Decreased Breath Sounds. Negative for: Crackles, Rhonchi, Wheezing Pulses-Post. Tibialis (L): 3+/4+ Pulses-Post. Tibialis (R): 3+/4+ Gastrointestinal/Abdominal: Positive for: Bowel Sounds (hyperactive), Tenderness , Distended (+ fluid thrill ascites), Asicites Back: Negative for: L CVA Tenderness, R CVA Tenderness Rectal: Positive for: Deferred Extremity: Positive for: Tenderness, Pedal Edema, Calf Tenderness, Swelling Neurologic/Psych: Positive for: Alert, trial consultant II-XII, Oriented <Meghan Smith - Last Filed: 08/24/17 03:05> - Laboratory Results Result Diagrams: 08/24/17 02:10 08/24/17 02:10 - ECG O2 Sat by Pulse Oximetry: 100 <Meghan Smith - Last Filed: 08/24/17 03:05> - Laboratory Results Result Diagrams: 08/24/17 02:10 08/24/17 02:10 <Rodrigo Pack - Last Filed: 08/24/17 05:57> Medical Decision Making <Meghan Smith - Last Filed: 08/24/17 03:05> <Rodrigo Pack - Last Filed: 08/24/17 05:57> Medical Decision Making: A/P: 47 y/o homeless male, with PMH of CAD, CHF, left AICD/stent placement, COPD, DM , HTN, HLD, b/l LE venous stasis, alcohol abuse and ascites, brought in by EMS for chest pain, dyspnea, dizziness and whole body pain/swelling. - EKG, Troponin I, BNP - CXR - Serum Alcohol - BMP, LFTs, CBC, PT/PTT - Benadryl Case discussed with Dr. Pack -- Meghan Smith, PGY1 3:00- Admit pt - EKG: old LBBB, NS rhythm - CXR: No acute changes - Amonia 35, BNP 815, ALP 230 (Meghan Smith) Disposition - Patient ED Disposition Is Patient to be Admitted: Yes <Meghan Smith - Last Filed: 08/24/17 03:05> - Patient ED Disposition Is Patient to be Admitted: Yes - Disposition Disposition Time: 02:58 <Rodrigo Pack - Last Filed: 08/24/17 05:57> - Clinical Impression Clinical Impression: Atypical chest pain, Chest pain, Abdominal distension, Alcohol abuse, Cirrhosis of liver with ascites, AICD (automatic cardioverter/defibrillator) present, Alcohol intoxication, Dyspnea - Disposition Condition: STABLE
[2017-08-24 02:20] LABS: BASO % 0.9 % (0.0-2.0); HEMATOCRIT 34.7 % (35.0-51.0); LYMPH # 0.8 K/uL (1.0-4.3); LYMPH % 20.3 % (20.0-40.0); MEAN CELL VOLUME 98.6 fl (80.0-94.0); MEAN CORPUSCULAR HEMOGLOBIN 32.9 pg (27.0-31.0); MEAN CORPUSCULAR HGB CONC 33.3 g/dL (33.0-37.0); MEAN PLATELET VOLUME 7.1 fl (7.2-11.7); MONO % 23.3 % (0.0-10.0); NEUT # 2.3 K/uL (1.8-7.0); NEUT % 54.5 % (50.0-75.0); PLATELET COUNT 198 K/uL (130-400); RED CELL DISTRIBUTION WIDTH 15.3 % (11.5-14.5); WHITE BLOOD COUNT 4.2 K/uL (4.8-10.8)
[2017-08-24 02:30] LABS: VENOUS BLOOD GAS BASE EXCESS -4.1 mmol/L (0.0-2.0); VENOUS BLOOD GAS PCO2 44 mmHg (40-60); VENOUS BLOOD PH 7.31 (7.32-7.43)
[2017-08-24 02:31] LABS: ALB/GLOB RATIO 0.7 (1.0-2.1); ALCOHOL SERUM 222 mg/dl (0-10); ALKALINE PHOSPHATASE 230 U/L (38-126); ALT/SGPT 31 U/L (21-72); AST/SGOT 78 U/L (17-59); BILIRUBIN,TOTAL 0.6 mg/dl (0.2-1.3); BLOOD UREA NITROGEN 7 mg/dl (9-20); CARBON DIOXIDE 18 mmol/L (22-30); CHLORIDE 107 mmol/L (98-107); GFR AFRICAN-AMERICAN > 60; GLUCOSE,RANDOM 134 mg/dL (75-110); POTASSIUM 3.9 MMOL/L (3.6-5.0); SODIUM 136 mmol/l (132-148); TOTAL PROTEIN 7.1 G/DL (6.3-8.2)
[2017-08-24 02:33] LABS: PARTIAL THROMBOPLASTIN TIME 35.2 Seconds (25.6-37.1)
[2017-08-24 02:56] LABS: BASOPHIL 2 % (0-2); EOSINOPHIL 2 % (0-7); NEUTROPHIL 53 % (42-75); TOTAL CELLS COUNTED 100
[2017-08-24] MEDS ORDERED: Multivitamin (MVI) 10 ML, Thiamine 100 MG, Folic Acid 1 MG in Sodium Chloride 0.9% 1,00... IV ONE (03:38)
--- NOTE | 2017-08-24 08:44 | CARD ---
APPROVED REPORT EKG Measurement Heart [id number] MA [id number] <Conclusion> Normal sinus rhythm Left bundle branch block Abnormal ECG
[2017-08-24] MEDS ORDERED: Influenza Vaccine 18yr & older 0.5 ML/45 MCG SYR IM ONE (09:00)
--- NOTE | 2017-08-24 09:24 | CP.PCM.CON ---
<Bety Siddiqi - Last Filed: 08/24/17 15:56> History of Present Illness - History of Present Illness History of Present Illness: GI Fellow PGY4 Consult Note This is a 47 year old male with history of Hypertension, Diabetes, systolic CHF , EF 29% with diastolic dysfunction and dilated cardiomyopathy s/p AICD November 2015, CAD s/p SC with stent placement, and recurrent decompensated alcoholic cirrhosis secondary to ascites (no SBP) presenting with shortness of breath. Patient describes sudden onset of shortness of breath associated, mid-sternal chest pain, abdominal pain, and distension prior to ER presentation. He continues to drink daily stating he had 6-7 shots of vodka daily. He has had multiple paracentesis with no SBP, most recent at [facility] was 5L in May 2017. Denies nausea, vomiting, hematemesis, diarrhea, constipation, melena, hematochezia, confusion, pruritis, or unintentional weight loss. No prior EGD or colonoscopy and is refusing any endoscopic evaluation. ROS:A 12pt ROS was obtained and was negative except as above PmHx: As stated in HPI PSHx:AICD, cardiac stents FHx: Denies colon cancer SHx: Drinks 6-7 shots of vodka daily and 10-15 cigarettes/day x 30 years; denies illicit drugs. 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 Past Patient History - Infectious Disease Hx of Infectious Diseases: None - Past Medical History & Family History Past Medical History?: Yes - Past Social History Smoking Status: Heavy Smoker > 10 Cigarettes Daily - CARDIAC Hx Cardiac Disorders: Yes Hx Congestive Heart Failure: Yes Hx Hypercholesterolemia: Yes Hx Hypertension: Yes Other/Comment: left AICD - PULMONARY Hx Respiratory Disorders: Yes Hx Chronic Obstructive Pulmonary Disease (COPD): Yes - NEUROLOGICAL Hx Neurological Disorder: Yes - HEENT Hx HEENT Problems: No - RENAL Hx Chronic Kidney Disease: No - ENDOCRINE/METABOLIC Hx Endocrine Disorders: Yes - HEMATOLOGICAL/ONCOLOGICAL Hx Blood Disorders: Yes - INTEGUMENTARY Hx Dermatological Problems: Yes - MUSCULOSKELETAL/RHEUMATOLOGICAL Hx Falls: No - GASTROINTESTINAL Hx Gastrointestinal Disorders: Yes Hx Nausea: Yes Hx Vomiting: Yes - GENITOURINARY/GYNECOLOGICAL Hx Genitourinary Disorders: No - PSYCHIATRIC Hx Substance Use: No - SURGICAL HISTORY Hx Appendectomy: Yes Hx Coronary Stent: Yes (15 yrs ago) - ANESTHESIA Hx Anesthesia: Yes Hx Anesthesia Reactions: No Hx Malignant Hyperthermia: No Meds Allergies/Adverse Reactions: Allergies Allergy/AdvReac Type Severity Reaction Status Date / Time No Known Allergies Allergy Verified 05/27/17 08:42 - Medications Medications: Current Medications Furosemide (Lasix) 40 mg PO DAILY [facility] Heparin Sodium (Porcine) (Heparin) 5,000 units SC Q8 KATELYN PRN Reason: Protocol Spironolactone (Aldactone) 100 mg PO DAILY [facility] Physical Exam - Constitutional Appears: No Acute Distress, Older Than Stated Age, Chronically Ill - Head Exam Head Exam: ATRAUMATIC, NORMAL INSPECTION, NORMOCEPHALIC - Eye Exam Eye Exam: EOMI, Normal appearance Pupil Exam: PERRL - ENT Exam ENT Exam: Mucous Membranes Moist, Normal Exam - Neck Exam Neck exam: Positive for: Normal Inspection - Respiratory Exam Respiratory Exam: Decreased Breath Sounds, NORMAL BREATHING PATTERN - Cardiovascular Exam Cardiovascular Exam: RRR, +S1, +S2 - GI/Abdominal Exam GI & Abdominal Exam: Distended, Normal Bowel Sounds, Tenderness. absent: Organomegaly - Rectal Exam Rectal Exam: Deferred - Extremities Exam Extremities exam: Positive for: full ROM, pedal edema - Back Exam Back exam: NORMAL INSPECTION - Neurological Exam Neurological exam: Alert, Oriented x3 - Psychiatric Exam Psychiatric exam: Normal Affect, Normal Mood - Skin Skin Exam: Dry, Intact, Normal Color, Warm Results - Vital Signs Recent Vital Signs: Last Vital Signs Temp 98.7 F 08/24/17 08:39 Pulse 104 H 08/24/17 08:39 Resp 18 08/24/17 08:39 BP 103/71 08/24/17 08:39 Pulse Ox 96 08/24/17 08:39 - Labs Result Diagrams: 08/24/17 09:40 08/24/17 09:40 Labs: Laboratory Results - last 24 hr 08/24/17 08/24/17 08/24/17 02:10 02:10 02:10 WBC 4.2 L RBC 3.52 L Hgb 11.6 L Hct 34.7 L MCV 98.6 H D MCH 32.9 H MCHC 33.3 RDW 15.3 H Plt Count 198 MPV 7.1 L Neut % (Auto) 54.5 Lymph % (Auto) 20.3 Mcduffie % (Auto) 23.3 H Eos % (Auto) 1.0 Baso % (Auto) 0.9 Neut # 2.3 Lymph # 0.8 L Mcduffie # 1.0 H Eos # 0.0 Baso # 0.0 Neutrophils % (Manual) 53 Lymphocytes % (Manual) 24 Monocytes % (Manual) 19 H Eosinophils % (Manual) 2 Basophils % (Manual) 2 Platelet Estimate Normal Anisocytosis (manual) Slight PT 12.8 INR 1.1 APTT 35.2 pO2 VBG pH VBG pCO2 VBG HCO3 VBG Total CO2 VBG O2 Sat (Calc) VBG Base Excess VBG Potassium Glucose Lactate FiO2 Sodium 136 Potassium 3.9 Chloride 107 Carbon Dioxide 18 L Anion Gap 15 BUN 7 L Creatinine 0.7 L Est GFR ( Amer) > 60 Est GFR (Non-Af Amer) > 60 Random Glucose 134 H Calcium 8.0 L Total Bilirubin 0.6 Direct Bilirubin 0.4 AST 78 H D ALT 31 Alkaline Phosphatase 230 H D Ammonia Troponin I 0.0290 NT-Pro-B Natriuret Pep 815 H Total Protein 7.1 Albumin 2.8 L Globulin 4.3 H Albumin/Globulin Ratio 0.7 L Venous Blood Potassium Alcohol, Quantitative 222 H 08/24/17 08/24/17 02:10 02:19 WBC RBC Hgb Hct MCV MCH MCHC RDW Plt Count MPV Neut % (Auto) Lymph % (Auto) Mcduffie % (Auto) Eos % (Auto) Baso % (Auto) Neut # Lymph # Mcduffie # Eos # Baso # Neutrophils % (Manual) Lymphocytes % (Manual) Monocytes % (Manual) Eosinophils % (Manual) Basophils % (Manual) Platelet Estimate Anisocytosis (manual) PT INR APTT pO2 28 L VBG pH 7.31 L VBG pCO2 44 VBG HCO3 20.3 VBG Total CO2 23.6 VBG O2 Sat (Calc) 55.2 VBG Base Excess -4.1 L VBG Potassium 4.7 Glucose 116 H Lactate 1.8 FiO2 21.0 Sodium 135.0 Potassium Chloride 107.0 Carbon Dioxide Anion Gap BUN Creatinine Est GFR ( Amer) Est GFR (Non-Af Amer) Random Glucose Calcium Total Bilirubin Direct Bilirubin AST ALT Alkaline Phosphatase Ammonia 35 Troponin I NT-Pro-B Natriuret Pep Total Protein Albumin Globulin Albumin/Globulin Ratio Venous Blood Potassium 4.7 Alcohol, Quantitative Assessment & Plan - Assessment and Plan (Free Text) Assessment: This is a 47 year old male with history of Hypertension, Diabetes, systolic CHF , EF 29% with diastolic dysfunction and dilated cardiomyopathy s/p AICD November 2015, CAD s/p SC with stent placement, and recurrent decompensated alcoholic cirrhosis secondary to ascites (no SBP) presenting with shortness of breath, chest pain, and abdominal distension. 1. Decompensated alcoholic cirrhosis MELD 7 2. Dilated cardiomyopathy likely from alcohol abuse 3. CHF s/p ICD 4. CAD 5. Ascites Plan: -Ordered abdominal US with plan for IR guided large volume paracentesis -Ordered peritoneal fluid studies to r/o SBP -Will order IV albumin if more than 5L of peritoneal fluid removed -Low sodium diet as tolerated, NPO this am for procedure -Will start diuretic therapy, aldactone 100mg daily and lasix 40mg daily and monitor electrolytes -Pt may need IV lasix pending cardiology recommendation with cardiac/cirrhotic disease contributing to ascites and LE edema -Start lactulose for HE prevention, titrate so patient has 2-3 bowel movements daily -Counselled on alcohol cessation -Patient will need elective EGD for variceal screening once medically stable and once agreeable to procedure -Will continue to monitor patient closely <Antoinette Degroot MD - Last Filed: 08/24/17 20:50> Meds - Medications Medications: Current Medications Acetaminophen (Tylenol 325mg Tab) 650 mg PO Q6 PRN PRN Reason: Fever >100.4 F Furosemide (Lasix) 40 mg PO DAILY [facility] Last Admin: 08/24/17 17:16 Dose: 40 mg Heparin Sodium (Porcine) (Heparin) 5,000 units SC Q8 KATELYN PRN Reason: Protocol Last Admin: 08/24/17 17:08 Dose: 5,000 units Piperacillin Sod/Tazobactam Sod (Zosyn 3.375 Gm Iv Premix) 3.375 gm in 50 mls @ 50 mls/hr IVPB Q12 KATELYN PRN Reason: Protocol Lactulose (Enulose) 20 gm PO BID [facility] Last Admin: 08/24/17 17:09 Dose: 20 gm Lorazepam (Ativan) 0.5 mg IVP Q4 PRN PRN Reason: Agitation Last Admin: 08/24/17 17:07 Dose: 0.5 mg Spironolactone (Aldactone) 100 mg PO DAILY [facility] Last Admin: 08/24/17 17:17 Dose: 100 mg Results - Vital Signs Recent Vital Signs: Last Vital Signs Temp 101.3 F H 08/24/17 19:57 Pulse 66 08/24/17 19:43 Resp 20 08/24/17 19:43 BP 108/74 08/24/17 19:43 Pulse Ox 98 08/24/17 19:43 - Labs Result Diagrams: 08/24/17 09:40 08/24/17 09:40 Labs: Laboratory Results - last 24 hr 08/24/17 08/24/17 08/24/17 02:10 02:10 02:10 WBC 4.2 L RBC 3.52 L Hgb 11.6 L Hct 34.7 L MCV 98.6 H D MCH 32.9 H MCHC 33.3 RDW 15.3 H Plt Count 198 MPV 7.1 L Neut % (Auto) 54.5 Lymph % (Auto) 20.3 Mcduffie % (Auto) 23.3 H Eos % (Auto) 1.0 Baso % (Auto) 0.9 Neut # 2.3 Lymph # 0.8 L Mcduffie # 1.0 H Eos # 0.0 Baso # 0.0 Neutrophils % (Manual) 53 Lymphocytes % (Manual) 24 Monocytes % (Manual) 19 H Eosinophils % (Manual) 2 Basophils % (Manual) 2 Platelet Estimate Normal Anisocytosis (manual) Slight PT 12.8 INR 1.1 APTT 35.2 pO2 VBG pH VBG pCO2 VBG HCO3 VBG Total CO2 VBG O2 Sat (Calc) VBG Base Excess VBG Potassium Glucose Lactate FiO2 Sodium 136 Potassium 3.9 Chloride 107 Carbon Dioxide 18 L Anion Gap 15 BUN 7 L Creatinine 0.7 L Est GFR ( Amer) > 60 Est GFR (Non-Af Amer) > 60 Random Glucose 134 H Calcium 8.0 L Total Bilirubin 0.6 Direct Bilirubin 0.4 AST 78 H D ALT 31 Alkaline Phosphatase 230 H D Ammonia Troponin I 0.0290 NT-Pro-B Natriuret Pep 815 H Total Protein 7.1 Albumin 2.8 L Globulin 4.3 H Albumin/Globulin Ratio 0.7 L Triglycerides Cholesterol LDL Cholesterol Direct HDL Cholesterol Vitamin B12 Venous Blood Potassium Fluid Source Alcohol, Quantitative 222 H 08/24/17 08/24/17 08/24/17 02:10 02:19 09:40 WBC 3.2 L RBC 3.37 L Hgb 11.1 L Hct 32.1 L MCV 95.4 H D MCH 32.9 H MCHC 34.5 RDW 14.7 H Plt Count 177 MPV Neut % (Auto) Lymph % (Auto) Mcduffie % (Auto) Eos % (Auto) Baso % (Auto) Neut # Lymph # Mcduffie # Eos # Baso # Neutrophils % (Manual) Lymphocytes % (Manual) Monocytes % (Manual) Eosinophils % (Manual) Basophils % (Manual) Platelet Estimate Anisocytosis (manual) PT INR APTT pO2 28 L VBG pH 7.31 L VBG pCO2 44 VBG HCO3 20.3 VBG Total CO2 23.6 VBG O2 Sat (Calc) 55.2 VBG Base Excess -4.1 L VBG Potassium 4.7 Glucose 116 H Lactate 1.8 FiO2 21.0 Sodium 135.0 Potassium Chloride 107.0 Carbon Dioxide Anion Gap BUN Creatinine Est GFR ( Amer) Est GFR (Non-Af Amer) Random Glucose Calcium Total Bilirubin Direct Bilirubin AST ALT Alkaline Phosphatase Ammonia 35 Troponin I NT-Pro-B Natriuret Pep Total Protein Albumin Globulin Albumin/Globulin Ratio Triglycerides Cholesterol LDL Cholesterol Direct HDL Cholesterol Vitamin B12 Venous Blood Potassium 4.7 Fluid Source Alcohol, Quantitative 08/24/17 08/24/17 08/24/17 09:40 13:30 17:03 WBC RBC Hgb Hct MCV MCH MCHC RDW Plt Count MPV Neut % (Auto) Lymph % (Auto) Mcduffie % (Auto) Eos % (Auto) Baso % (Auto) Neut # Lymph # Mcduffie # Eos # Baso # Neutrophils % (Manual) Lymphocytes % (Manual) Monocytes % (Manual) Eosinophils % (Manual) Basophils % (Manual) Platelet Estimate Anisocytosis (manual) PT INR APTT pO2 VBG pH VBG pCO2 VBG HCO3 VBG Total CO2 VBG O2 Sat (Calc) VBG Base Excess VBG Potassium Glucose Lactate FiO2 Sodium 136 Potassium 3.7 Chloride 110 H Carbon Dioxide 19 L Anion Gap 11 BUN 5 L Creatinine 0.7 L Est GFR ( Amer) > 60 Est GFR (Non-Af Amer) > 60 Random Glucose 88 Calcium 7.8 L Total Bilirubin 0.9 Direct Bilirubin AST 76 H ALT 33 Alkaline Phosphatase 204 H Ammonia Troponin I 0.0240 NT-Pro-B Natriuret Pep Total Protein 6.7 Albumin 2.6 L Globulin 4.1 H Albumin/Globulin Ratio 0.6 L Triglycerides 45 Cholesterol 127 LDL Cholesterol Direct 50 HDL Cholesterol 49 Vitamin B12 557 Venous Blood Potassium Fluid Source Peritoneal/ascites Alcohol, Quantitative Attending/Attestation - Attestation I have personally seen and examined this patient.: Yes I have fully participated in the care of the patient.: Yes I have reviewed all pertinent clinical information: Yes Notes (Text): 08/24/17 20:45 late entry- Patient seen and examined at bedside this evening. He was given ativan earlier and he was lethargic but answering q's. In a nutshell this is a 47 year old male with history of Hypertension, Diabetes, systolic CHF, EF 29% and dilated cardiomyopathy s/p AICD November 2015, CAD s/p SC with stent placement, and recurrent decompensated alcoholic cirrhosis secondary to ascites (no SBP) presenting with shortness of breath, chest pain, and abdominal distension in setting of ascites. MELD 7 s/p paracentesis large volume to rule out SBP. Pending ascites culture and cytology. Needs albumin replacement. Low sodium diet as tolerated. Will start diuretics low dose. If Cr is normal tomorrow, will do CT triple phase to rule out liver lesions. Start lactulose for HE prevention, titrate so patient has 2-3 bowel movements daily. Counselled on alcohol cessation. Patient will need elective EGD for variceal screening once medically stable and once agreeable to procedure. Will continue to monitor patient closely
[2017-08-24 10:30] LABS: HEMATOCRIT 32.1 % (35.0-51.0); MEAN CELL VOLUME 95.4 fl (80.0-94.0); MEAN CORPUSCULAR HEMOGLOBIN 32.9 pg (27.0-31.0); MEAN CORPUSCULAR HGB CONC 34.5 g/dL (33.0-37.0); RED CELL DISTRIBUTION WIDTH 14.7 % (11.5-14.5); WHITE BLOOD COUNT 3.2 K/uL (4.8-10.8)
[2017-08-24 10:40] LABS: ALB/GLOB RATIO 0.6 (1.0-2.1); ALKALINE PHOSPHATASE 204 U/L (38-126); ALT/SGPT 33 U/L (21-72); AST/SGOT 76 U/L (17-59); BILIRUBIN,TOTAL 0.9 mg/dl (0.2-1.3); BLOOD UREA NITROGEN 5 mg/dl (9-20); CALCIUM 7.8 mg/dL (8.4-10.2); CARBON DIOXIDE 19 mmol/L (22-30); CHLORIDE 110 mmol/L (98-107); CHOLESTEROL 127 mg/dL (0-199); GFR AFRICAN-AMERICAN > 60; GLUCOSE,RANDOM 88 mg/dL (75-110); POTASSIUM 3.7 MMOL/L (3.6-5.0); SODIUM 136 mmol/l (132-148); TOTAL PROTEIN 6.7 G/DL (6.3-8.2)
--- NOTE | 2017-08-24 12:46 | RAD ---
PROCEDURE: CHEST RADIOGRAPH, 1 VIEW HISTORY: cp, "hard to breathe" COMPARISON: 05/16/2017 FINDINGS: LUNGS: Clear. PLEURA: No pneumothorax or pleural fluid seen. CARDIOVASCULAR: No radiographic findings to suggest acute or significant cardiovascular disease. Position/ configuration of pacemaker device: Satisfactory. OSSEOUS STRUCTURES: No significant abnormalities. VISUALIZED UPPER ABDOMEN: Normal. OTHER FINDINGS: None. IMPRESSION: No active disease. No acute/significant interval changes. Please note: No preliminary report/ innterpretation of this examination provided by emergency department personnel.
[2017-08-24] MEDS ORDERED: Lidocaine 1% Inj (20ml) ONE (12:50)
[2017-08-24 13:37] LABS: BODY FLUID TYPE PERITONEAL/ASCITES
--- NOTE | 2017-08-24 14:05 | PCM.SURG1 ---
Surgeon's Initial Post Op Note - Surgeon's Notes Surgeon: Tu Andersen MD Smoke Tester: NONE Type of Anesthesia: Local Pre-Operative Diagnosis: Ascites Operative Findings: US showed a large amount of ascites Post-Operative Diagnosis: Ascites Operation Performed: US guided paracentesis. Specimen/Specimens Removed: 8.5 liters of straw colored fluid Estimated Blood Loss: EBL {In ML}: 0 Blood Products Given: N/A Drains Used: No Drains Post-Op Condition: Fair Date of Surgery/Procedure: 08/24/17 Time of Surgery/Procedure: 13:55
[2017-08-24] MEDS ORDERED: Albumin Human 25% (12.5 gm/50 ml) IV ONE (16:11)
--- NOTE | 2017-08-24 20:26 | PCM.RRT ---
[employer] MAIN[employer] DEVELOPER Nurse Assessment - Situation Location: 4N Room Number: 415 [employer] MAIN[employer] DEVELOPER Reason for Call: Tachycardia [employer] MAINFRAME DEVELOPER Called By: RN - IV IV Inserted during [employer] MAINFRAME DEVELOPER?: No - Respiratory Oxygen Delivery Method: Room Air Received Nebulizer Treatments: No Was the Patient Ventilated with Bag/Mask 100% O2?: No Secretions Suctioned?: No Was the Patient Intubated?: No Was the Patient Placed on a Ventilator?: No - Medication Medications Administered During [employer] MAINFRAME DEVELOPER: Motrin 600mg. O2@2L/min via nasal cannula - Diagnostic Test Ordered EKG: Yes Chest X-Ray: No CT Scan: No CPR started during [employer] MAINFRAME DEVELOPER?: No - Vital Signs Vital Signs: Rapid Response Vital Sign Blood Pressure 114/73 Pulse Rate 142 Respiratory Rate 22 Temperature 101.3 F Oxygen Saturation 98 - Sepsis Screen Part 1 Sepsis Screen Part 1: Temperature over 100.6F - Time [employer] MAINFRAME DEVELOPER Ended Time [employer] MAINFRAME DEVELOPER Ended: 19:00 - Recommendations [employer] MAINFRAME DEVELOPER Level of Care Recommendations: Remain in current setting I.Reason for [employer] MAINFRAME DEVELOPER - A) Acute Change in Patient: (Select all that apply): Staff member or family is worried about patient - Neurological Status (Select all that apply): Responsive, Follows Commands, Lethargic - Respiratory Oxygen Delivery Method: Room Air - Constitutional Appears: No Acute Distress, Chronically Ill Additional Comments: lethargic - Head Head Exam: ATRAUMATIC, NORMOCEPHALIC - Eyes Eye Exam: PERRL - Respiratory Exam Respiratory Exam: Clear to Ausculation Bilateral, NORMAL BREATHING PATTERN. absent: Rhonchi, Wheezes - Cardiovascular Exam Cardiovascular Exam: Tachycardia. absent: JVD - GI/Abdominal Exam GI & Abdominal Exam: Soft, Tenderness. absent: Distended, Guarding, Rebound - Neurological Exam Neurological Exam: Alert, CN II-XII Intact, Oriented x3 - Extremities Exam Extremities Exam: Pedal Edema (1 +) Additional comments: chronic venous stasis Plan - Assessment of Findings&Treatment Plan [employer] MAINFRAME DEVELOPER called on 47 y/o male with PMH alcoholism, liver cirrhosis with ascites , HTN , DM, CHF, EF 29% , s/p AICD , CAD s/p [place] with stent placement, for tachycardia with HR ranging from 135-140 . patient found lying in bed , comfortably sleeping , somewhat lethargic but responding questions appropriately and following commands. patient denies any SOB or CP. As per staff he underwent abdominal parasenthesis today with removal of 8.5 L ascitic fluid. Albumin infusion ongoing At present abdomen is tender to palpation and Temp 101.3 12 lead EKG showed Sinus tachycardia with no ST - t wave changes A/p Sinus tachycardia most likely to fever and volume depletion Albumin infusion ongoing Will give Motrin PRN for fever Start Zosyn IV empirically for SBP Continue monitoring in telemetry PMD Dr. Rojas notified
[2017-08-24] MEDS ORDERED: Piperacill/Tazo 3.375gm in Dex 3.375 GM/50 ML BAG IVPB SCH (21:00)
[2017-08-25 05:44] LABS: HEMATOCRIT 31.3 % (35.0-51.0); MEAN CELL VOLUME 97.5 fl (80.0-94.0); MEAN CORPUSCULAR HEMOGLOBIN 32.7 pg (27.0-31.0); MEAN CORPUSCULAR HGB CONC 33.6 g/dL (33.0-37.0); WHITE BLOOD COUNT 2.7 K/uL (4.8-10.8)
[2017-08-25 06:04] LABS: ALB/GLOB RATIO 0.8 (1.0-2.1); ALKALINE PHOSPHATASE 159 U/L (38-126); ALT/SGPT 27 U/L (21-72); AST/SGOT 59 U/L (17-59); BILIRUBIN,TOTAL 2.1 mg/dl (0.2-1.3); BLOOD UREA NITROGEN 7 mg/dl (9-20); CALCIUM 7.8 mg/dL (8.4-10.2); CARBON DIOXIDE 22 mmol/L (22-30); CHLORIDE 108 mmol/L (98-107); GFR AFRICAN-AMERICAN > 60; GLUCOSE,RANDOM 82 mg/dL (75-110); POTASSIUM 3.3 MMOL/L (3.6-5.0); SODIUM 139 mmol/l (132-148); TOTAL PROTEIN 6.2 G/DL (6.3-8.2)
--- NOTE | 2017-08-25 07:34 | CP.PCM.PN ---
<Bety Siddiqi - Last Filed: 08/25/17 08:54> Subjective - Date & Time of Evaluation Date of Evaluation: 08/25/17 Time of Evaluation: 07:10 - Subjective Subjective: GI Fellow Consult Note Pt seen and evaluated at bedside, pt drowsy and difficult to arouse. Pt had an BEATER OUT called last night due to unresponsiveness likely from over sedation with Ativan for alcohol withdrawal and agitation. Pt slept all night per nursing. ROS: A 12pt ROS negative except as above. Objective - Vital Signs/Intake and Output Vital Signs (last 24 hours): Temp Pulse Resp BP Pulse Ox 98.1 F 90 18 120/76 100 08/25/17 00:43 08/25/17 00:43 08/25/17 00:43 08/25/17 00:43 08/25/17 00:43 - Medications Medications: Current Medications Acetaminophen (Tylenol 325mg Tab) 650 mg PO Q6 PRN PRN Reason: Fever >100.4 F Furosemide (Lasix) 40 mg PO DAILY [facility] Last Admin: 08/24/17 17:16 Dose: 40 mg Heparin Sodium (Porcine) (Heparin) 5,000 units SC Q8 KATELYN PRN Reason: Protocol Last Admin: 08/25/17 00:28 Dose: 5,000 units Piperacillin Sod/Tazobactam Sod (Zosyn 3.375 Gm Iv Premix) 3.375 gm in 50 mls @ 50 mls/hr IVPB Q8 KATELYN PRN Reason: Protocol Lactulose (Enulose) 20 gm PO BID [facility] Last Admin: 08/24/17 17:09 Dose: 20 gm Lorazepam (Ativan) 0.5 mg IVP Q4 PRN PRN Reason: Agitation Last Admin: 08/24/17 22:10 Dose: 0.5 mg Spironolactone (Aldactone) 100 mg PO DAILY [facility] Last Admin: 08/24/17 17:17 Dose: 100 mg - Labs Labs: 08/25/17 04:35 08/25/17 04:35 PT 12.8 Seconds (9.8-13.1) 08/24/17 02:10 INR 1.1 (0.9-1.2) 08/24/17 02:10 APTT 35.2 Seconds (25.6-37.1) 08/24/17 02:10 - Constitutional Appears: Non-toxic, Chronically Ill - Head Exam Head Exam: ATRAUMATIC, NORMAL INSPECTION, NORMOCEPHALIC - Eye Exam Eye Exam: EOMI, Normal appearance, PERRL Pupil Exam: PERRL - ENT Exam ENT Exam: Mucous Membranes Moist, Normal Exam - Neck Exam Neck Exam: Full ROM, Normal Inspection - Respiratory Exam Respiratory Exam: Clear to Ausculation Bilateral, NORMAL BREATHING PATTERN - Cardiovascular Exam Cardiovascular Exam: Tachycardia, +S1, +S2 - GI/Abdominal Exam GI & Abdominal Exam: Distended, Soft, Normal Bowel Sounds. absent: Guarding, Tenderness, Organomegaly - Rectal Exam Rectal Exam: Deferred - Extremities Exam Extremities Exam: Pedal Edema - Back Exam Back Exam: NORMAL INSPECTION - Neurological Exam Additional comments: drowsy but arousable - Psychiatric Exam Psychiatric exam: Agitated - Skin Skin Exam: Dry, Intact, Normal Color, Warm Assessment and Plan - Assessment and Plan (Free Text) Assessment: This is a 47 year old male with history of Hypertension, Diabetes, systolic CHF , EF 29% with diastolic dysfunction and dilated cardiomyopathy s/p AICD November 2015, CAD s/p [place] with stent placement, and recurrent decompensated alcoholic cirrhosis secondary to ascites (no SBP) presenting with shortness of breath, chest pain, and abdominal distension. 1. Decompensated alcoholic cirrhosis MELD 7 2. Dilated cardiomyopathy likely from alcohol abuse 3. CHF s/p ICD 4. CAD 5. Ascites Plan: -s/p IR guided large volume paracentesis 8.5L peritoneal fluid removed -Ordered IV Albumin 62.5g after paracentesis: 6-8g/L of peritoneal fluid removed -Pending peritoneal fluid studies to r/o SBP -Low sodium diet as tolerated -Continue diuretic therapy, aldactone 100mg daily and lasix 40mg daily and monitor electrolytes -Continue lactulose for HE prevention, titrate so patient has 2-3 bowel movements daily -Counselled on alcohol cessation -Patient will need elective EGD for variceal screening once medically stable and once agreeable to procedure -Will order CT Liver triple phase to r/o HCC, Cr 0.7 -Will continue to monitor patient closely <Antoinette Degroot MD - Last Filed: 08/25/17 11:03> Objective - Vital Signs/Intake and Output Vital Signs (last 24 hours): Temp Pulse Resp BP Pulse Ox 97.7 F 70 18 107/69 99 08/25/17 08:00 08/25/17 08:00 08/25/17 08:00 08/25/17 09:18 08/25/17 08:00 - Medications Medications: Current Medications Acetaminophen (Tylenol 325mg Tab) 650 mg PO Q6 PRN PRN Reason: Fever >100.4 F Furosemide (Lasix) 40 mg PO DAILY [facility] Last Admin: 08/25/17 09:18 Dose: 40 mg Heparin Sodium (Porcine) (Heparin) 5,000 units SC Q8 KATELYN PRN Reason: Protocol Last Admin: 08/25/17 09:17 Dose: 5,000 units Piperacillin Sod/Tazobactam Sod (Zosyn 3.375 Gm Iv Premix) 3.375 gm in 50 mls @ 50 mls/hr IVPB Q8 KATELYN PRN Reason: Protocol Last Admin: 08/25/17 09:42 Dose: 50 mls/hr Lactulose (Enulose) 20 gm PO BID [facility] Last Admin: 08/25/17 09:17 Dose: 20 gm Lorazepam (Ativan) 0.5 mg IVP Q4 PRN PRN Reason: Agitation Last Admin: 08/25/17 09:41 Dose: 0.5 mg Potassium Chloride (K-Dur 20 Meq Er Tab) 20 meq PO DAILY [facility] Last Admin: 08/25/17 09:43 Dose: 20 meq Spironolactone (Aldactone) 100 mg PO DAILY [facility] Last Admin: 08/25/17 09:17 Dose: 100 mg - Labs Labs: 08/25/17 04:35 08/25/17 04:35 PT 12.8 Seconds (9.8-13.1) 08/24/17 02:10 INR 1.1 (0.9-1.2) 08/24/17 02:10 APTT 35.2 Seconds (25.6-37.1) 08/24/17 02:10 Attending/Attestation - Attestation I have personally seen and examined this patient.: Yes I have fully participated in the care of the patient.: Yes I have reviewed all pertinent clinical information, including history, physical exam and plan: Yes Notes (Text): 08/25/17 11:02 Patient seen and examined at bedside this evening. In a nutshell this is a 47 year old male with history of Hypertension, Diabetes, systolic CHF, EF 29% and dilated cardiomyopathy s/p AICD November 2015, CAD s/p [place] with stent placement, and recurrent decompensated alcoholic cirrhosis secondary to ascites (no SBP) presenting with shortness of breath, chest pain, and abdominal distension in setting of ascites. MELD 7 s/p paracentesis large volume to rule out SBP. Pending ascites culture and cytology. On albumin replacement. Low sodium diet as tolerated. Will start diuretics low dose. Needs CT triple phase to rule out liver lesions. Start lactulose for HE prevention, titrate so patient has 2-3 bowel movements daily. Counselled on alcohol cessation. Patient will need elective EGD for variceal screening once medically stable and once agreeable to procedure. Will continue to monitor patient closely
[2017-08-25] MEDS ORDERED: Iohexol 300 100 ML IJ ONE ×2 (07:56→17:06)
[2017-08-25] MEDS ORDERED: Sodium Chloride 0.9% 0 ML IV ONE (07:56)
--- NOTE | 2017-08-25 09:27 | HP ---
CHIEF COMPLAINT: Chest pain, headache, dizziness, and whole body swelling. HISTORY OF PRESENT ILLNESS: This is a 47-year-old [place] male, known case of coronary artery disease, congestive heart failure, cardiac arrhythmia, AICD placement, COPD, diabetes, hypertension, hyperlipidemia, alcohol abuse, and ascites, who was having chest pain, dyspnea, dizziness, and whole body pain and swelling. So, patient was brought to the emergency room and was admitted for further management. Patient is a very poor historian and does not want to get into conversation, but at this time, patient is sleeping and does not want to wake up, but denies any chest pain or shortness of breath. REVIEW OF SYSTEMS: Whatever is available is negative for headache, dizziness, syncope, loss of consciousness, chest pain, shortness of breath. No nausea, vomiting, diarrhea, constipation, any new joint or extremity pain. Review of systems is positive for generalized weakness and abdominal distention. Review of systems of all other organ system is unremarkable. PAST MEDICAL HISTORY: Significant for coronary artery disease, CHF, COPD, diabetes, hypertension, hyperlipidemia, venous stasis, alcohol abuse, and ascites. PAST SURGICAL HISTORY: Remarkable for coronary artery stents, AICD, appendectomy. PERSONAL HISTORY: Patient has a history of heavy alcohol abuse, heavy smoking but denies any substances. FAMILY HISTORY: Positive for hypertension, hyperlipidemia, diabetes, liver problems. MEDICATIONS: Patient is not on any medications. ALLERGIES: PATIENT IS NOT ALLERGIC TO ANY MEDICATIONS. PHYSICAL EXAMINATION: GENERAL: A well-built, well-nourished, overweight 47-year-old male, in no acute distress. Patient is disheveled. VITAL SIGNS: Temperature 97.5, pulse 104, respirations 16, blood pressure 118/78, saturation 99%. HEENT: No JVD. No thyromegaly. No lymphadenopathy. No nystagmus. Normocephalic, atraumatic skull. HEART: S1 and S2, normal and regular. No significant murmur, gallop, or rub is heard. LUNGS: Show good bilateral air exchange. No rales or rhonchi. ABDOMEN: Soft, nontender. No organomegaly. No fluid. Patient has massive ascites, but no signs of acute abdomen. No guarding. No rigidity. No rebound. Bowel sounds are plus and normal. EXTREMITIES: Patient has chronic venous stasis. No calf swelling. No tenderness. No acute ischemia. CENTRAL NERVOUS SYSTEM: Patient is sleepy, arousable, moves all extremities. Thorough PUBLICITY EXPERT exam is not possible, but there does not be seem to be any acute gross focal motor or sensory neurological deficits. DIAGNOSTIC DATA: Available diagnostic data reviewed. WBC of 4.2, hemoglobin 11.6, hematocrit 34.7, platelets 198. Sodium 136, potassium 3.9, chloride 107, bicarb 18, BUN 7, creatinine 0.7. SMA-12 is unremarkable. AST is 78, ALT is 31. Alcohol level was 222. Chest x-ray is poor penetrated film, but seems clear. EKG shows left bundle branch block with QRS widening, but no acute ST-T changes are appreciated. ADMITTING IMPRESSION: Chest pain, rule out acute coronary syndrome; alcohol intoxication, alcohol abuse; history of congestive heart failure; coronary artery disease; cardiac arrhythmia; chronic obstructive pulmonary disease; and obesity. PLAN: As ordered. Eber Pittman MD
--- NOTE | 2017-08-25 09:30 | US ---
HISTORY: ascites; liver cirrhosis COMPARISON: None. TECHNIQUE: Sonographic evaluation of the right upper quadrant of the abdomen. FINDINGS: LIVER: Measures 22.3 cm in length. There is coarse echotexture of the liver parenchyma with nodular contour. No mass. No intrahepatic bile duct dilatation. GALLBLADDER: The gallbladder is contracted and there is diffuse wall thickening which measures 6 mm, likely secondary to hepatic disease. There is a 1 cm stone within the gallbladder. The sonographic Young's sign is negative. COMMON BILE DUCT: Measures 7.0 mm. No stones. No dilatation. PANCREAS: Obscured by bowel gas. RIGHT KIDNEY: Measures 11.0 cm in length. Normal echogenicity. No calculus, mass, or hydronephrosis. AORTA: No aneurysmal dilatation. IVC: Unremarkable. OTHER FINDINGS: There is moderate abdominal ascites. IMPRESSION: 1. Mild hepatomegaly and hepatic cirrhosis. 2. Cholelithiasis. 3. Moderate abdominal ascites.
[2017-08-25] MEDS: Piperacill/Tazo 3.375gm in Dex 3.375 GM/50 ML BAG IVPB SCH ×2 (09:42→16:33)
[2017-08-25] MEDS: Potassium Chloride 20 mEq ER Tab PO SCH (09:43)
--- NOTE | 2017-08-25 11:33 | CARD ---
APPROVED REPORT EXAM: Two-dimensional and M-mode echocardiogram with Doppler and color Doppler. Other Information Quality : GoodRhythm : NSR INDICATION Chest Pain Surgery/Intervention ICD/Pacemaker: 2D DIMENSIONS IVSd0.86 (0.7-1.1cm)LVDd6.79 (3.9-5.9cm) LVOT Diameter2.44 (1.8-2.4cm)PWd0.47 (0.7-1.1cm) IVSs0.98 (0.8-1.2cm)LVDs6.14 (2.5-4.0cm) FS (%) 9.5 %PWs0.86 (0.8-1.2cm) M-Mode DIMENSIONS Left Atrium (MM)4.78 (2.5-4.0cm)IVSd0.66 (0.7-1.1cm) Aortic Root3.84 (2.2-3.7cm)LVDd8.31 (4.0-5.6cm) Aortic Cusp Exc.1.75 (1.5-2.0cm)PWd0.81 (0.7-1.1cm) IVSs0.67 cmFS (%) 19 % LVDs6.72 (2.0-3.8cm)PWs1.22 cm Mitral Valve E/A ratio0.0 TDI E/Lateral E'0.0E/Medial E'0.0 LEFT VENTRICLE The Left Ventricle is severely dilated. There is normal left ventricular wall thickness. The systolic function is severely impaired. The Ejection Fraction is <20%. There is global hypokinesis of the left ventricle. The left ventricular diastolic function is normal. No left ventricle thrombus noted on this study. There is no mass noted in the left ventricle. RIGHT VENTRICLE The right ventricle is normal size. There is normal right ventricular wall thickness. The right ventricular systolic function is normal. ATRIA The left atrium size is normal. The right atrium size is normal. The interatrial septum is intact with no evidence for an atrial septal defect. AORTIC VALVE The aortic valve is normal in structure and function. No aortic regurgitation is present. There is no aortic valvular stenosis. There is no aortic valvular vegetation. MITRAL VALVE The mitral valve is normal in structure and function. There is no evidence of mitral valve prolapse. There is no mitral valve stenosis. Mitral regurgitation is mild. TRICUSPID VALVE The tricuspid valve is normal in structure and function. There is no tricuspid valve regurgitation noted. There is no tricuspid valve prolapse or vegetation. There is no tricuspid valve stenosis. PULMONIC VALVE The pulmonary valve is normal in structure and function. There is no pulmonic valvular regurgitation. There is no pulmonic valvular stenosis. GREAT VESSELS The aortic root is normal in size. The IVC is normal in size and collapses >50% with inspiration. PERICARDIAL EFFUSION The pericardium appears normal. There is no pleural effusion. <Conclusion> The Left Ventricle is severely dilated. The systolic function is severely impaired. The Ejection Fraction is <20%. There is global hypokinesis of the left ventricle. Mitral regurgitation is mild.
--- NOTE | 2017-08-25 11:55 | CARD ---
APPROVED REPORT EKG Measurement Heart [id number] CA [id number] [id number] <Conclusion> Sinus tachycardia with fusion complexes Left bundle branch block Abnormal ECG
--- NOTE | 2017-08-25 12:09 | US ---
Date of Procedure: PROCEDURE: Ultrasound-guided paracentesis, CPT 88080 Medications: 7 cc 1% Lidocaine HISTORY: Ascites, abdominal pain, cirrhosis TECHNIQUE: Following informed consent , the patient was placed supine on the stretcher and the site was marked. A limited abdominal ultrasound was performed that showed a large amount of intra-abdominal fluid. Procedural time out was called and the Pt's abdomen was marked and prepped and draped in the usual sterile fashion. Ultrasound-guided large volume paracentesis performed. A total of 8.5 liters of straw colored fluid was removed without complication. IMPRESSION: Ultrasound-guided large volume paracentesis.
[2017-08-25] MEDS ORDERED: Iohexol 240 (50 ml) PO ONE (15:51)
[2017-08-25] MEDS ORDERED: Sodium Chloride 0.9% 50 ML IV ONE (17:06)
[2017-08-26] MEDS: Piperacill/Tazo 3.375gm in Dex 3.375 GM/50 ML BAG IVPB SCH ×3 (01:58→16:50)
[2017-08-26] MEDS ORDERED: Potassium Chloride 20 mEq ER Tab PO ONE (08:05)
[2017-08-26 08:28] LABS: HEMATOCRIT 34.9 % (35.0-51.0); MEAN CELL VOLUME 96.2 fl (80.0-94.0); MEAN CORPUSCULAR HEMOGLOBIN 33.3 pg (27.0-31.0); MEAN CORPUSCULAR HGB CONC 34.6 g/dL (33.0-37.0); RED CELL DISTRIBUTION WIDTH 14.8 % (11.5-14.5); WHITE BLOOD COUNT 3.8 K/uL (4.8-10.8)
[2017-08-26 08:46] LABS: BLOOD UREA NITROGEN 6 mg/dl (9-20); CARBON DIOXIDE 24 mmol/L (22-30); CHLORIDE 104 mmol/L (98-107); GFR AFRICAN-AMERICAN > 60; GLUCOSE,RANDOM 88 mg/dL (75-110); MAGNESIUM 1.1 MG/DL (1.6-2.3); PHOSPHOROUS 4.4 mg/dl (2.5-4.5); POTASSIUM 3.6 MMOL/L (3.6-5.0); SODIUM 137 mmol/l (132-148)
[2017-08-26] MEDS: Potassium Chloride 20 mEq ER Tab PO SCH (09:02)
--- NOTE | 2017-08-26 09:52 | CP.PCM.PN ---
<Bety Siddiqi - Last Filed: 08/26/17 11:08> Subjective - Date & Time of Evaluation Date of Evaluation: 08/26/17 Time of Evaluation: 09:25 - Subjective Subjective: GI Fellow Consult Note Pt seen and evaluated at bedside, pt alert more awake and answering questions. Pt reports he is homeless, discussed with primary team who said PT recommended inpt rehab. Talked to pt about cirrhosis and alcohol cessation, and opportunity to follow up out pt at [facility]. ROS: A 12pt ROS negative except as above. Objective - Vital Signs/Intake and Output Vital Signs (last 24 hours): Temp Pulse Resp BP Pulse Ox 98.3 F 112 H 18 105/75 98 08/26/17 08:00 08/26/17 08:00 08/26/17 08:00 08/26/17 08:59 08/26/17 08:00 Intake and Output: 08/26/17 08/26/17 06:59 18:59 Intake Total 240 Balance 240 - Medications Medications: Current Medications Acetaminophen (Tylenol 325mg Tab) 650 mg PO Q6 PRN PRN Reason: Fever >100.4 F Chlordiazepoxide (Librium) 25 mg PO Q8 PRN PRN Reason: tremors Last Admin: 08/25/17 14:24 Dose: 25 mg Diphenhydramine HCl (Benadryl) 25 mg PO Q8 PRN PRN Reason: Itching / Pruritus Last Admin: 08/26/17 00:37 Dose: 25 mg Furosemide (Lasix) 40 mg PO DAILY [facility] Last Admin: 08/26/17 08:59 Dose: 40 mg Heparin Sodium (Porcine) (Heparin) 5,000 units SC Q8 KATELYN PRN Reason: Protocol Last Admin: 08/26/17 08:58 Dose: 5,000 units Piperacillin Sod/Tazobactam Sod (Zosyn 3.375 Gm Iv Premix) 3.375 gm in 50 mls @ 50 mls/hr IVPB Q8 KATELYN PRN Reason: Protocol Last Admin: 08/26/17 09:00 Dose: 50 mls/hr Magnesium Sulfate 2 gm/ Sodium (Chloride) 104 mls @ 104 mls/hr IVPB ONCE ONE PRN Reason: 2 GM/HR Stop: 08/26/17 10:33 Lactulose (Enulose) 20 gm PO BID [facility] Last Admin: 08/26/17 08:58 Dose: 20 gm Lorazepam (Ativan) 0.5 mg IVP Q4 PRN PRN Reason: Agitation Last Admin: 08/26/17 00:38 Dose: 0.5 mg Spironolactone (Aldactone) 100 mg PO DAILY [facility] Last Admin: 08/26/17 08:57 Dose: 100 mg - Labs Labs: 08/26/17 08:00 08/26/17 08:00 PT 12.8 Seconds (9.8-13.1) 08/24/17 02:10 INR 1.1 (0.9-1.2) 08/24/17 02:10 APTT 35.2 Seconds (25.6-37.1) 08/24/17 02:10 - Constitutional Appears: Non-toxic, No Acute Distress - Head Exam Head Exam: ATRAUMATIC, NORMAL INSPECTION, NORMOCEPHALIC - Eye Exam Eye Exam: EOMI, Normal appearance, PERRL Pupil Exam: PERRL - ENT Exam ENT Exam: Mucous Membranes Moist, Normal Exam - Neck Exam Neck Exam: Full ROM, Normal Inspection - Respiratory Exam Respiratory Exam: Clear to Ausculation Bilateral, NORMAL BREATHING PATTERN - Cardiovascular Exam Cardiovascular Exam: RRR, +S1, +S2 - GI/Abdominal Exam GI & Abdominal Exam: Soft, Normal Bowel Sounds. absent: Distended, Tenderness, Organomegaly - Rectal Exam Rectal Exam: Deferred - Extremities Exam Extremities Exam: Pedal Edema - Back Exam Back Exam: NORMAL INSPECTION - Neurological Exam Neurological Exam: Alert, Awake, Oriented x3 - Psychiatric Exam Psychiatric exam: Normal Affect, Normal Mood - Skin Skin Exam: Dry, Intact, Normal Color, Warm Assessment and Plan - Assessment and Plan (Free Text) Assessment: This is a 47 year old male with history of Hypertension, Diabetes, systolic CHF , EF 29% with diastolic dysfunction and dilated cardiomyopathy s/p AICD November 2015, CAD s/p WA with stent placement, and recurrent decompensated alcoholic cirrhosis secondary to ascites (no SBP) presenting with shortness of breath, chest pain, and abdominal distension. 1. Decompensated alcoholic cirrhosis MELD 7 2. Dilated cardiomyopathy likely from alcohol abuse 3. CHF s/p ICD 4. CAD 5. Ascites Plan: -s/p IR guided large volume paracentesis 8.5L peritoneal fluid removed with IV Albumin after paracentesis -Pending peritoneal fluid studies to r/o SBP -Low sodium diet as tolerated -Continue diuretic therapy, aldactone 100mg daily and lasix 40mg daily and monitor electrolytes -Continue lactulose for HE prevention, titrate so patient has 2-3 bowel movements daily -Counselled on alcohol cessation -Patient will need elective EGD for variceal screening once medically stable and once agreeable to procedure -CT Liver triple phase to r/o HCC pending -Will continue to monitor patient closely <Antoinette Degroot MD - Last Filed: 08/26/17 16:50> Objective - Vital Signs/Intake and Output Vital Signs (last 24 hours): Temp Pulse Resp BP Pulse Ox 97.9 F 99 H 20 105/75 99 08/26/17 15:51 08/26/17 15:51 08/26/17 15:51 08/26/17 15:51 08/26/17 15:51 Intake and Output: 08/26/17 08/26/17 06:59 18:59 Intake Total 240 Balance 240 - Medications Medications: Current Medications Acetaminophen (Tylenol 325mg Tab) 650 mg PO Q6 PRN PRN Reason: Fever >100.4 F Chlordiazepoxide (Librium) 25 mg PO Q8 PRN PRN Reason: tremors Last Admin: 08/25/17 14:24 Dose: 25 mg Diphenhydramine HCl (Benadryl) 25 mg PO Q8 PRN PRN Reason: Itching / Pruritus Last Admin: 08/26/17 00:37 Dose: 25 mg Furosemide (Lasix) 40 mg PO DAILY [facility] Last Admin: 08/26/17 08:59 Dose: 40 mg Heparin Sodium (Porcine) (Heparin) 5,000 units SC Q8 KATELYN PRN Reason: Protocol Last Admin: 08/26/17 08:58 Dose: 5,000 units Piperacillin Sod/Tazobactam Sod (Zosyn 3.375 Gm Iv Premix) 3.375 gm in 50 mls @ 50 mls/hr IVPB Q8 KATELYN PRN Reason: Protocol Last Admin: 08/26/17 09:00 Dose: 50 mls/hr Lactulose (Enulose) 20 gm PO BID [facility] Last Admin: 08/26/17 08:58 Dose: 20 gm Lorazepam (Ativan) 0.5 mg IVP Q4 PRN PRN Reason: Agitation Last Admin: 08/26/17 00:38 Dose: 0.5 mg Spironolactone (Aldactone) 100 mg PO DAILY [facility] Last Admin: 08/26/17 08:57 Dose: 100 mg - Labs Labs: 08/26/17 08:00 08/26/17 08:00 PT 12.8 Seconds (9.8-13.1) 08/24/17 02:10 INR 1.1 (0.9-1.2) 08/24/17 02:10 APTT 35.2 Seconds (25.6-37.1) 08/24/17 02:10 Attending/Attestation - Attestation I have personally seen and examined this patient.: Yes I have fully participated in the care of the patient.: Yes I have reviewed all pertinent clinical information, including history, physical exam and plan: Yes Notes (Text): 08/26/17 16:49 Patient seen and examined at bedside this evening. In a nutshell this is a 47 year old male with history of Hypertension, Diabetes, systolic CHF, EF 29% and dilated cardiomyopathy s/p AICD November 2015, CAD s/p WA with stent placement, and recurrent decompensated alcoholic cirrhosis secondary to ascites (no SBP) presenting with shortness of breath, chest pain, and abdominal distension in setting of ascites. MELD 7 s/p paracentesis large volume to rule out SBP. Pending ascites culture and cytology. On albumin replacement. Low sodium diet as tolerated. On diuretics low dose. pending CT triple phase to rule out liver lesions. Counselled on alcohol cessation. Patient will need elective EGD for variceal screening once medically stable and once agreeable to procedure. Will continue to monitor patient closely
[2017-08-26] MEDS ORDERED: Magnesium Sulfate 2 gm/50 ml 2 GM/50 ML BAG IV ONE (10:15)
--- NOTE | 2017-08-26 10:45 | PN ---
DATE: 08/25/2017 SUBJECTIVE: The patient is seen and examined. Interim events noted. Consults noted and appreciated. Gastroenterology followup and interventions noted and appreciated. The patient remains in Progressive Care Unit and telemetry monitoring. The patient feels okay, complains of leg swelling. No chest pain. No shortness of breath. PHYSICAL EXAMINATION: GENERAL: The patient is in no acute distress. VITAL SIGNS: Stable. HEART: S1 and S2, normal and regular. LUNGS: Good bilateral air exchange. ABDOMEN: Much softer. The patient can pass 8-1/2 liters yesterday. No sign of acute abdomen. No guarding, no rigidity, no rebound. Bowel sounds are present and normal. EXTREMITIES: The patient has minimal edema consistent with a heart failure. No calf swelling. No tenderness. No acute ischemia. CENTRAL NERVOUS SYSTEM: Essentially unchanged. DIAGNOSTIC DATA: Available diagnostic data reviewed. Telemetry monitoring does not reveal significant arrhythmia. ASSESSMENT AND PLAN: Overall, the patient's general medical condition is better. The patient had episode of tachycardia requiring rapid response team intervention. No significant events since then. Overall, the patient is slowly improving. Plan as ordered. Eber Pittman MD
--- NOTE | 2017-08-26 10:56 | CP.PCM.CON ---
History of Present Illness - History of Present Illness History of Present Illness: 47 y/o homeless male, with PMH of CAD, CHF, left AICD/stent placement, COPD, DM , HTN, HLD, b/l LE venous stasis, alcohol abuse and ascites, brought in by EMS for chest pain, dyspnea, dizziness and whole body pain/swelling. Chest pain started yesterday, which comes and goes, electrical in nature, 9/10 severity, radiates to left shoulder and associated with dizziness, headache and itchiness. pt is also complaining of whole body swelling and abdominal pain which is chronic. PMD: None PMH: CAD, CHF, COPD, DM, HTN, HLD, b/l LE venous stasis, alcohol abuse and ascites PSH: Appendectomy, coronary stent 15 yrs ago, pacemaker (left AICD) Allg: NKDA Meds: Denies SH: Alcohol use 2 pints/day, smoking > 12 cig/day, denies any illicit drug use FH: positive for HTN, HLD, DM and liver problem Troponin: neg EKG: CLBBB Echo: Dilated LV LV dysfunction EF: 20% Past Patient History - Infectious Disease Hx of Infectious Diseases: None - Past Medical History & Family History Past Medical History?: Yes - Past Social History Smoking Status: Heavy Smoker > 10 Cigarettes Daily - CARDIAC Hx Cardiac Disorders: Yes Hx Congestive Heart Failure: Yes Hx Hypercholesterolemia: Yes Hx Hypertension: Yes Other/Comment: left AICD - PULMONARY Hx Respiratory Disorders: Yes Hx Chronic Obstructive Pulmonary Disease (COPD): Yes - NEUROLOGICAL Hx Neurological Disorder: Yes - HEENT Hx HEENT Problems: No - RENAL Hx Chronic Kidney Disease: No - ENDOCRINE/METABOLIC Hx Endocrine Disorders: Yes - HEMATOLOGICAL/ONCOLOGICAL Hx Blood Disorders: Yes - INTEGUMENTARY Hx Dermatological Problems: Yes - MUSCULOSKELETAL/RHEUMATOLOGICAL Hx Falls: No - GASTROINTESTINAL Hx Gastrointestinal Disorders: Yes Hx Nausea: Yes Hx Vomiting: Yes - GENITOURINARY/GYNECOLOGICAL Hx Genitourinary Disorders: No - PSYCHIATRIC Hx Substance Use: No - SURGICAL HISTORY Hx Appendectomy: Yes Hx Coronary Stent: Yes (15 yrs ago) - ANESTHESIA Hx Anesthesia: Yes Hx Anesthesia Reactions: No Hx Malignant Hyperthermia: No Meds Allergies/Adverse Reactions: Allergies Allergy/AdvReac Type Severity Reaction Status Date / Time No Known Allergies Allergy Verified 05/27/17 08:42 - Medications Medications: Current Medications Acetaminophen (Tylenol 325mg Tab) 650 mg PO Q6 PRN PRN Reason: Fever >100.4 F Chlordiazepoxide (Librium) 25 mg PO Q8 PRN PRN Reason: tremors Last Admin: 08/25/17 14:24 Dose: 25 mg Diphenhydramine HCl (Benadryl) 25 mg PO Q8 PRN PRN Reason: Itching / Pruritus Last Admin: 08/26/17 00:37 Dose: 25 mg Furosemide (Lasix) 40 mg PO DAILY [facility] Last Admin: 08/26/17 08:59 Dose: 40 mg Heparin Sodium (Porcine) (Heparin) 5,000 units SC Q8 KATELYN PRN Reason: Protocol Last Admin: 08/26/17 08:58 Dose: 5,000 units Piperacillin Sod/Tazobactam Sod (Zosyn 3.375 Gm Iv Premix) 3.375 gm in 50 mls @ 50 mls/hr IVPB Q8 KATELYN PRN Reason: Protocol Last Admin: 08/26/17 09:00 Dose: 50 mls/hr Magnesium Sulfate (Magnesium Sulfate 2 Gm/50 Ml Water) 2 gm in 50 mls @ 50 mls/ hr IV ONCE ONE PRN Reason: 2 GM/HR Stop: 08/26/17 11:14 Lactulose (Enulose) 20 gm PO BID [facility] Last Admin: 08/26/17 08:58 Dose: 20 gm Lorazepam (Ativan) 0.5 mg IVP Q4 PRN PRN Reason: Agitation Last Admin: 08/26/17 00:38 Dose: 0.5 mg Spironolactone (Aldactone) 100 mg PO DAILY [facility] Last Admin: 08/26/17 08:57 Dose: 100 mg Results - Vital Signs Recent Vital Signs: Last Vital Signs Temp 98.3 F 08/26/17 08:00 Pulse 112 H 08/26/17 09:00 Resp 18 08/26/17 08:00 BP 105/75 08/26/17 08:59 Pulse Ox 98 08/26/17 08:00 - Labs Result Diagrams: 08/26/17 08:00 08/26/17 08:00 Labs: Laboratory Results - last 24 hr 08/26/17 08/26/17 08:00 08:00 WBC 3.8 L RBC 3.63 L Hgb 12.1 Hct 34.9 L MCV 96.2 H MCH 33.3 H MCHC 34.6 RDW 14.8 H Plt Count 168 Sodium 137 Potassium 3.6 Chloride 104 Carbon Dioxide 24 Anion Gap 13 BUN 6 L Creatinine 0.9 Est GFR ( Amer) > 60 Est GFR (Non-Af Amer) > 60 Random Glucose 88 Calcium 8.0 L Phosphorus 4.4 Magnesium 1.1 L Vitamin B12 418 Folate Cancelled Assessment & Plan (1) Alcoholic cardiomyopathy Assessment and Plan: Continue present Tx Status: Acute
--- NOTE | 2017-08-26 11:07 | CP.PCM.PN ---
Subjective - Date & Time of Evaluation Date of Evaluation: 08/26/17 Time of Evaluation: 09:20 - Subjective Subjective: GI Fellow Consult Note Pt seen and evaluated at bedside, pt more alert and talkative this morning. Pt reports he is homeless and has no family support. Pt is having bowel movements. Pt is agreeable to outpt follow up and inpt rehab. ROS: A 12pt ROS negative except as above. Objective - Vital Signs/Intake and Output Vital Signs (last 24 hours): Temp Pulse Resp BP Pulse Ox 98.3 F 112 H 18 105/75 98 08/26/17 08:00 08/26/17 09:00 08/26/17 08:00 08/26/17 08:59 08/26/17 08:00 Intake and Output: 08/26/17 08/26/17 06:59 18:59 Intake Total 240 Balance 240 - Medications Medications: Current Medications Acetaminophen (Tylenol 325mg Tab) 650 mg PO Q6 PRN PRN Reason: Fever >100.4 F Chlordiazepoxide (Librium) 25 mg PO Q8 PRN PRN Reason: tremors Last Admin: 08/25/17 14:24 Dose: 25 mg Diphenhydramine HCl (Benadryl) 25 mg PO Q8 PRN PRN Reason: Itching / Pruritus Last Admin: 08/26/17 00:37 Dose: 25 mg Furosemide (Lasix) 40 mg PO DAILY [facility] Last Admin: 08/26/17 08:59 Dose: 40 mg Heparin Sodium (Porcine) (Heparin) 5,000 units SC Q8 KATELYN PRN Reason: Protocol Last Admin: 08/26/17 08:58 Dose: 5,000 units Piperacillin Sod/Tazobactam Sod (Zosyn 3.375 Gm Iv Premix) 3.375 gm in 50 mls @ 50 mls/hr IVPB Q8 KATELYN PRN Reason: Protocol Last Admin: 08/26/17 09:00 Dose: 50 mls/hr Magnesium Sulfate (Magnesium Sulfate 2 Gm/50 Ml Water) 2 gm in 50 mls @ 50 mls/ hr IV ONCE ONE PRN Reason: 2 GM/HR Stop: 08/26/17 11:14 Lactulose (Enulose) 20 gm PO BID [facility] Last Admin: 08/26/17 08:58 Dose: 20 gm Lorazepam (Ativan) 0.5 mg IVP Q4 PRN PRN Reason: Agitation Last Admin: 08/26/17 00:38 Dose: 0.5 mg Spironolactone (Aldactone) 100 mg PO DAILY [facility] Last Admin: 08/26/17 08:57 Dose: 100 mg - Labs Labs: 08/26/17 08:00 08/26/17 08:00 PT 12.8 Seconds (9.8-13.1) 08/24/17 02:10 INR 1.1 (0.9-1.2) 08/24/17 02:10 APTT 35.2 Seconds (25.6-37.1) 08/24/17 02:10 - Constitutional Appears: Non-toxic, No Acute Distress, Chronically Ill - Head Exam Head Exam: ATRAUMATIC, NORMAL INSPECTION, NORMOCEPHALIC - Eye Exam Eye Exam: EOMI, Normal appearance, PERRL - ENT Exam ENT Exam: Mucous Membranes Moist, Normal Exam - Neck Exam Neck Exam: Full ROM, Normal Inspection - Respiratory Exam Respiratory Exam: Clear to Ausculation Bilateral, NORMAL BREATHING PATTERN - Cardiovascular Exam Cardiovascular Exam: RRR, +S1, +S2 - GI/Abdominal Exam GI & Abdominal Exam: Soft, Normal Bowel Sounds. absent: Distended, Tenderness, Organomegaly - Rectal Exam Rectal Exam: Deferred - Extremities Exam Extremities Exam: Pedal Edema - Back Exam Back Exam: NORMAL INSPECTION - Neurological Exam Neurological Exam: Alert, Awake, Oriented x3 - Psychiatric Exam Psychiatric exam: Normal Affect, Normal Mood - Skin Skin Exam: Dry, Intact, Normal Color, Warm
[2017-08-26 11:22] LABS: BF GROSS APPEARANCE CLEAR (CLEAR)
--- NOTE | 2017-08-26 12:46 | CT ---
PROCEDURE: CT Abdomen with and without intravenous contrast HISTORY: hx cirrhosis r/o HCC COMPARISON: None. TECHNIQUE: Axial images of the abdomen from lung bases to iliac crest with and without intravenous contrast enhancement. Coronal and sagittal reformats generated. Oral contrast also administered. Intravenous contrast Dose: 95 cc Omnipaque 300 Radiation dose: Total exam DLP = 2407.41 mGy-cm. This CT exam was performed using one or more of the following dose reduction techniques: Automated exposure control, adjustment of the mA and/or kV according to patient size, and/or use of iterative reconstruction technique. FINDINGS: LOWER THORAX: Unremarkable. LIVER: Cirrhotic appearing liver based on contour and overall appearance. No focal masses or other suspicious abnormalities. GALLBLADDER AND BILE DUCTS: Cholelithiasis without CT evidence of acute cholecystitis. PANCREAS: Unremarkable. No gross lesion or ductal dilatation. SPLEEN: Unremarkable. ADRENALS: Unremarkable. No mass. KIDNEYS AND URETERS: Unremarkable. No hydronephrosis. No solid mass. VASCULATURE: Unremarkable. No aortic aneurysm. BOWEL: Unremarkable. No obstruction. No gross mural thickening. APPENDIX: Normal appendix. PERITONEUM: Moderate volume intra-abdominal and pelvic ascites. LYMPH NODES: Unremarkable. No enlarged lymph nodes. BLADDER: Unremarkable. REPRODUCTIVE: Unremarkable. BONES: No acute fracture. OTHER FINDINGS: None. IMPRESSION: Cirrhotic appearing liver, patent portal venous system. Normal spleen. No suspicious hepatic masses. Abdominal and pelvic ascites. Cholelithiasis without CT evidence of acute cholecystitis.
[2017-08-27] MEDS: Piperacill/Tazo 3.375gm in Dex 3.375 GM/50 ML BAG IVPB SCH ×3 (00:56→17:29)
--- NOTE | 2017-08-27 08:21 | CP.PCM.PN ---
<Bety Siddiqi - Last Filed: 08/27/17 10:56> Subjective - Date & Time of Evaluation Date of Evaluation: 08/27/17 Time of Evaluation: 08:00 - Subjective Subjective: GI Fellow Consult Note Pt seen and evaluated at bedside, pt alert answering questions. Pt reports he is homeless, discussed with primary team who said pt may need to go to intermediate. Talked to pt about cirrhosis and alcohol cessation, and opportunity to follow up out pt at [facility]. ROS: A 12pt ROS negative except as above. Objective - Vital Signs/Intake and Output Vital Signs (last 24 hours): Temp Pulse Resp BP Pulse Ox 97.8 F 80 18 91/59 L 98 08/27/17 08:00 08/27/17 08:00 08/27/17 08:00 08/27/17 08:00 08/27/17 08:00 - Medications Medications: Current Medications Acetaminophen (Tylenol 325mg Tab) 650 mg PO Q6 PRN PRN Reason: Fever >100.4 F Acetaminophen (Tylenol 325mg Tab) 650 mg PO Q6 PRN PRN Reason: Headache Last Admin: 08/27/17 02:59 Dose: 650 mg Chlordiazepoxide (Librium) 25 mg PO Q8 PRN PRN Reason: tremors Last Admin: 08/26/17 21:43 Dose: 25 mg Diphenhydramine HCl (Benadryl) 25 mg PO Q8 PRN PRN Reason: Itching / Pruritus Last Admin: 08/26/17 21:43 Dose: 25 mg Furosemide (Lasix) 40 mg PO DAILY KATELYN Last Admin: 08/26/17 08:59 Dose: 40 mg Heparin Sodium (Porcine) (Heparin) 5,000 units SC Q8 KATELYN PRN Reason: Protocol Last Admin: 08/27/17 00:57 Dose: 5,000 units Piperacillin Sod/Tazobactam Sod (Zosyn 3.375 Gm Iv Premix) 3.375 gm in 50 mls @ 50 mls/hr IVPB Q8 KATELYN PRN Reason: Protocol Last Admin: 08/27/17 00:56 Dose: 50 mls/hr Lactulose (Enulose) 20 gm PO BID KATELYN Last Admin: 08/26/17 16:49 Dose: 20 gm Lorazepam (Ativan) 0.5 mg IVP Q4 PRN PRN Reason: Agitation Last Admin: 08/26/17 00:38 Dose: 0.5 mg Spironolactone (Aldactone) 100 mg PO DAILY KATELYN Last Admin: 08/26/17 08:57 Dose: 100 mg - Labs Labs: 08/26/17 08:00 08/26/17 08:00 PT 12.8 Seconds (9.8-13.1) 08/24/17 02:10 INR 1.1 (0.9-1.2) 08/24/17 02:10 APTT 35.2 Seconds (25.6-37.1) 08/24/17 02:10 - Constitutional Appears: Non-toxic, No Acute Distress - Head Exam Head Exam: ATRAUMATIC, NORMAL INSPECTION, NORMOCEPHALIC - Eye Exam Eye Exam: EOMI, Normal appearance, PERRL Pupil Exam: PERRL - ENT Exam ENT Exam: Mucous Membranes Moist, Normal Exam - Neck Exam Neck Exam: Full ROM, Normal Inspection - Respiratory Exam Respiratory Exam: Clear to Ausculation Bilateral, NORMAL BREATHING PATTERN - Cardiovascular Exam Cardiovascular Exam: RRR, +S1, +S2 - GI/Abdominal Exam GI & Abdominal Exam: Soft, Normal Bowel Sounds. absent: Tenderness, Organomegaly - Rectal Exam Rectal Exam: Deferred - Extremities Exam Extremities Exam: Full ROM, Pedal Edema - Back Exam Back Exam: NORMAL INSPECTION - Neurological Exam Neurological Exam: Alert, Awake, Oriented x3 - Psychiatric Exam Psychiatric exam: Normal Affect, Normal Mood - Skin Skin Exam: Dry, Intact, Normal Color Assessment and Plan - Assessment and Plan (Free Text) Assessment: This is a 47 year old male with history of Hypertension, Diabetes, systolic CHF , EF 29% with diastolic dysfunction and dilated cardiomyopathy s/p AICD November 2015, CAD s/p [place] with stent placement, and recurrent decompensated alcoholic cirrhosis secondary to ascites (no SBP) presenting with shortness of breath, chest pain, and abdominal distension. 1. Decompensated alcoholic cirrhosis MELD 7 2. Dilated cardiomyopathy likely from alcohol abuse 3. CHF s/p ICD 4. CAD 5. Ascites Plan: -s/p IR guided large volume paracentesis 8.5L peritoneal fluid removed with IV Albumin after paracentesis -No SBP -Low sodium diet as tolerated -Continue diuretic therapy, aldactone 100mg daily and lasix 40mg daily and monitor electrolytes -Continue lactulose for HE prevention, titrate so patient has 2-3 bowel movements daily -Counselled on alcohol cessation -Patient will need elective EGD for variceal screening once medically stable and once agreeable to procedure -CT Liver triple phase to negative for HCC -Pt has ascites so may need another paracentesis prior to discharge, discussed with primary team -Will continue to monitor patient closely <Antoinette Degroot MD - Last Filed: 08/27/17 14:32> Objective - Vital Signs/Intake and Output Vital Signs (last 24 hours): Temp Pulse Resp BP Pulse Ox 97.9 F 112 H 18 105/77 100 08/27/17 13:00 08/27/17 13:00 08/27/17 13:00 08/27/17 13:00 08/27/17 13:00 - Medications Medications: Current Medications Acetaminophen (Tylenol 325mg Tab) 650 mg PO Q6 PRN PRN Reason: Fever >100.4 F Acetaminophen (Tylenol 325mg Tab) 650 mg PO Q6 PRN PRN Reason: Headache Last Admin: 08/27/17 02:59 Dose: 650 mg Chlordiazepoxide (Librium) 25 mg PO Q8 PRN PRN Reason: tremors Last Admin: 08/26/17 21:43 Dose: 25 mg Diphenhydramine HCl (Benadryl) 25 mg PO Q8 PRN PRN Reason: Itching / Pruritus Last Admin: 08/26/17 21:43 Dose: 25 mg Furosemide (Lasix) 40 mg PO DAILY [facility] Last Admin: 08/27/17 09:53 Dose: Not Given Heparin Sodium (Porcine) (Heparin) 5,000 units SC Q8 KATELYN PRN Reason: Protocol Last Admin: 08/27/17 09:54 Dose: Not Given Piperacillin Sod/Tazobactam Sod (Zosyn 3.375 Gm Iv Premix) 3.375 gm in 50 mls @ 50 mls/hr IVPB Q8 KATELYN PRN Reason: Protocol Last Admin: 08/27/17 12:49 Dose: 50 mls/hr Lactulose (Enulose) 20 gm PO BID KATELYN Last Admin: 08/27/17 09:53 Dose: Not Given Lorazepam (Ativan) 0.5 mg IVP Q4 PRN PRN Reason: Agitation Last Admin: 08/26/17 00:38 Dose: 0.5 mg Spironolactone (Aldactone) 100 mg PO DAILY KATELYN Last Admin: 08/27/17 09:53 Dose: Not Given - Labs Labs: 08/26/17 08:00 08/26/17 08:00 PT 12.8 Seconds (9.8-13.1) 08/24/17 02:10 INR 1.1 (0.9-1.2) 08/24/17 02:10 APTT 35.2 Seconds (25.6-37.1) 08/24/17 02:10 Attending/Attestation - Attestation I have personally seen and examined this patient.: Yes I have fully participated in the care of the patient.: Yes I have reviewed all pertinent clinical information, including history, physical exam and plan: Yes Notes (Text): 08/27/17 14:30 Patient seen and examined at bedside this evening. In a nutshell this is a 47 year old male with history of Hypertension, Diabetes, systolic CHF, EF 29% and dilated cardiomyopathy s/p AICD November 2015, CAD s/p [place] with stent placement, and recurrent decompensated alcoholic cirrhosis secondary to ascites (no SBP) presenting with shortness of breath, chest pain, and abdominal distension in setting of ascites. MELD 7 s/p paracentesis large volume to rule out SBP. No SBP on cytology. On albumin replacement. Low sodium diet as tolerated. On diuretics low dose. CT triple phase without liver lesions. Counselled on alcohol cessation. Patient will need elective EGD for variceal screening once medically stable and once agreeable to procedure. Can be discharged on low salt diet and diuretics
--- NOTE | 2017-08-27 10:25 | PN ---
DATE: 08/26/2017 SUBJECTIVE: Patient seen and examined. Interim events noted. Patient remains in Progressive Care Unit, on telemetry monitoring, required some sedation yesterday. Currently, patient feels okay. No chest pain. No shortness of breath. PHYSICAL EXAMINATION: GENERAL: Patient is in no acute distress. VITAL SIGNS: Stable. HEART: S1 and S2, normal and regular. LUNGS: Good bilateral air entry. ABDOMEN: Soft, nontender. Patient has ascites, but no sign of acute abdomen. No guarding. No rigidity. No rebound. Bowel sounds are present and normal. EXTREMITIES: Patient has minimal edema. No calf swelling or tenderness. No acute ischemia. CENTRAL NERVOUS SYSTEM: Essentially unchanged. DIAGNOSTIC DATA: Available diagnostic data reviewed. Telemetry monitoring does not reveal significant arrhythmias. ASSESSMENT AND PLAN: Overall, patient's general medical condition is slowly improving, did show some sign of withdrawal from alcohol. Plan as ordered. Eber Pittman MD
--- NOTE | 2017-08-27 14:06 | PN ---
DATE: 08/27/2017 SUBJECTIVE: The patient is seen and examined. Interim events noted. Consults noted and appreciated. The patient remains in Progressive Care Unit on telemetry monitoring. The patient feels okay. Complains of paresthesias in extremities. No chest pain. No shortness of breath. Abdomen pain also resolved. PHYSICAL EXAMINATION: GENERAL: The patient is in no acute distress. VITAL SIGNS: Stable. HEART: S1 and S2, normal and regular. LUNGS: Good bilateral air exchange. ABDOMEN: Soft, nontender. Abdominal exam shows ascites with marked distention, but no sign of acute abdomen. No guarding. No rigidity. No rebound. Bowel sounds are present and normal. EXTREMITIES: The edema much improved. No calf swelling. No tenderness. No acute ischemia. CENTRAL NERVOUS SYSTEM: Essentially unchanged. DIAGNOSTIC DATA: Available diagnostic data reviewed. Telemetry monitoring does not reveal significant arrhythmias. ASSESSMENT AND PLAN: Overall, the patient's general medical condition is hemodynamically stable and improving. . Plan as ordered. The patient was counseled about the alcohol complication. Eber Pittman MD
[2017-08-27 15:50] VITALS: RESP 20
[2017-08-28] MEDS: Piperacill/Tazo 3.375gm in Dex 3.375 GM/50 ML BAG IVPB SCH ×2 (00:14→10:00)
[2017-08-28 05:37] VITALS: TEMP 98.1; O2SAT 98
[2017-08-28 06:14] LABS: HEMATOCRIT 36.1 % (35.0-51.0); MEAN CELL VOLUME 99.5 fl (80.0-94.0); MEAN CORPUSCULAR HEMOGLOBIN 32.9 pg (27.0-31.0); RED CELL DISTRIBUTION WIDTH 15.9 % (11.5-14.5); WHITE BLOOD COUNT 4.7 K/uL (4.8-10.8)
[2017-08-28 07:21] LABS: ALB/GLOB RATIO 0.7 (1.0-2.1); ALKALINE PHOSPHATASE 152 U/L (38-126); ALT/SGPT 32 U/L (21-72); AST/SGOT 72 U/L (17-59); BLOOD UREA NITROGEN 5 mg/dl (9-20); CARBON DIOXIDE 24 mmol/L (22-30); CHLORIDE 108 mmol/L (98-107); GFR AFRICAN-AMERICAN > 60; GLUCOSE,RANDOM 89 mg/dL (75-110); POTASSIUM 3.8 MMOL/L (3.6-5.0); SODIUM 139 mmol/l (132-148); TOTAL PROTEIN 6.7 G/DL (6.3-8.2)
[2017-08-28 08:07] VITALS: BP 96/59
[2017-08-28 10:36] VITALS: PULSE 95
--- NOTE | 2017-08-28 12:14 | CP.PCM.DIS ---
Provider - Provider Date of Admission: 08/25/17 08:29 Attending physician: Eber Pittman MD Time Spent in preparation of Discharge (in minutes): 30 Diagnosis - Discharge Diagnosis (1) Cirrhosis of liver with ascites Status: Chronic Hospital Course - Lab Results Lab Results: Micro Results 08/24/17 13:30 Body Fluid - Ascites Fluid Gram Stain - Final 08/24/17 13:30 Body Fluid - Ascites Fluid Body Fluid Culture - Final No growth. 08/26/17 09:00 Blood Blood Culture - Preliminary NO GROWTH AFTER 48 HOURS 08/26/17 20:36 Urine Urine Culture - Final No Growth (<1,000 CFU/ML) Most Recent Lab Values WBC 4.7 K/uL (4.8-10.8) L 08/28/17 05:35 RBC 3.62 Mil/uL (4.40-5.90) L 08/28/17 05:35 Hgb 11.9 g/dL (12.0-18.0) L 08/28/17 05:35 Hct 36.1 % (35.0-51.0) 08/28/17 05:35 MCV 99.5 fl (80.0-94.0) H D 08/28/17 05:35 MCH 32.9 pg (27.0-31.0) H 08/28/17 05:35 MCHC 33.0 g/dL (33.0-37.0) 08/28/17 05:35 RDW 15.9 % (11.5-14.5) H 08/28/17 05:35 Plt Count 174 K/uL (130-400) 08/28/17 05:35 MPV 7.1 fl (7.2-11.7) L 08/24/17 02:10 Neut % (Auto) 54.5 % (50.0-75.0) 08/24/17 02:10 Lymph % (Auto) 20.3 % (20.0-40.0) 08/24/17 02:10 Union % (Auto) 23.3 % (0.0-10.0) H 08/24/17 02:10 Eos % (Auto) 1.0 % (0.0-4.0) 08/24/17 02:10 Baso % (Auto) 0.9 % (0.0-2.0) 08/24/17 02:10 Neut # 2.3 K/uL (1.8-7.0) 08/24/17 02:10 Lymph # 0.8 K/uL (1.0-4.3) L 08/24/17 02:10 Union # 1.0 K/uL (0.0-0.8) H 08/24/17 02:10 Eos # 0.0 K/uL (0.0-0.7) 08/24/17 02:10 Baso # 0.0 K/uL (0.0-0.2) 08/24/17 02:10 Neutrophils % (Manual) 53 % (42-75) 08/24/17 02:10 Lymphocytes % (Manual) 24 % (20-50) 08/24/17 02:10 Monocytes % (Manual) 19 % (0-10) H 08/24/17 02:10 Eosinophils % (Manual) 2 % (0-7) 08/24/17 02:10 Basophils % (Manual) 2 % (0-2) 08/24/17 02:10 Platelet Estimate Normal (NORMAL) 08/24/17 02:10 Anisocytosis (manual) Slight 08/24/17 02:10 PT 12.8 Seconds (9.8-13.1) 08/24/17 02:10 INR 1.1 (0.9-1.2) 08/24/17 02:10 APTT 35.2 Seconds (25.6-37.1) 08/24/17 02:10 pO2 28 mm/Hg (30-55) L 08/24/17 02:19 VBG pH 7.31 (7.32-7.43) L 08/24/17 02:19 VBG pCO2 44 mmHg (40-60) 08/24/17 02:19 VBG HCO3 20.3 mmol/L 08/24/17 02:19 VBG Total CO2 23.6 mmol/L (22-28) 08/24/17 02:19 VBG O2 Sat (Calc) 55.2 % (40-65) 08/24/17 02:19 VBG Base Excess -4.1 mmol/L (0.0-2.0) L 08/24/17 02:19 VBG Potassium 4.7 mmol/L (3.6-5.2) 08/24/17 02:19 Sodium 135.0 mmol/L (132-148) 08/24/17 02:19 Chloride 107.0 mmol/L (98-107) 08/24/17 02:19 Glucose 116 mg/dL (75-110) H 08/24/17 02:19 Lactate 1.8 mmol/L (0.7-2.1) 08/24/17 02:19 FiO2 21.0 % 08/24/17 02:19 Sodium 139 mmol/l (132-148) 08/28/17 05:35 Potassium 3.8 MMOL/L (3.6-5.0) 08/28/17 05:35 Chloride 108 mmol/L (98-107) H 08/28/17 05:35 Carbon Dioxide 24 mmol/L (22-30) 08/28/17 05:35 Anion Gap 11 (10-20) 08/28/17 05:35 BUN 5 mg/dl (9-20) L 08/28/17 05:35 Creatinine 0.9 mg/dL (0.8-1.5) 08/28/17 05:35 Est GFR ( Amer) > 60 08/28/17 05:35 Est GFR (Non-Af Amer) > 60 08/28/17 05:35 Random Glucose 89 mg/dL (75-110) 08/28/17 05:35 Calcium 8.0 mg/dL (8.4-10.2) L 08/28/17 05:35 Phosphorus 4.4 mg/dl (2.5-4.5) 08/26/17 08:00 Magnesium 1.1 MG/DL (1.6-2.3) L 08/26/17 08:00 Total Bilirubin 1.0 mg/dl (0.2-1.3) 08/28/17 05:35 Direct Bilirubin 0.4 mg/ml (0.0-0.4) 08/24/17 02:10 AST 72 U/L (17-59) H D 08/28/17 05:35 ALT 32 U/L (21-72) 08/28/17 05:35 Alkaline Phosphatase 152 U/L (38-126) H 08/28/17 05:35 Ammonia 35 umo/L (16-60) 08/24/17 02:10 Troponin I 0.0240 ng/mL (0.00-0.120) 08/24/17 17:03 NT-Pro-B Natriuret Pep 815 pg/ml (0-450) H 08/24/17 02:10 Total Protein 6.7 G/DL (6.3-8.2) 08/28/17 05:35 Albumin 2.7 g/dL (3.5-5.0) L 08/28/17 05:35 Globulin 4.0 gm/dL (2.2-3.9) H 08/28/17 05:35 Albumin/Globulin Ratio 0.7 (1.0-2.1) L 08/28/17 05:35 Triglycerides 45 mg/DL (0-149) 08/24/17 09:40 Cholesterol 127 mg/dL (0-199) 08/24/17 09:40 LDL Cholesterol Direct 50 mg/dL (0-129) 08/24/17 09:40 HDL Cholesterol 49 MG/DL (30-70) 08/24/17 09:40 Vitamin B12 418 pg/mL (239-931) 08/26/17 08:00 Folate 12.1 ng/mL 08/26/17 08:20 Venous Blood Potassium 4.7 mmol/L (3.6-5.2) 08/24/17 02:19 Fluid Source Peritoneal/ascites 08/24/17 13:30 Fluid Appearance Clear (CLEAR) 08/24/17 13:30 Fluid WBC 33.0 /mm3 (0.0-300.0) 08/24/17 13:30 Fluid RBC 45.0 /mm3 (0.0-0.0) H 08/24/17 13:30 Fluid Tot Cell Count TEST NOT PERFORMED 08/24/17 13:30 Fluid Neutrophils 8.0 % (0-0) H 08/24/17 13:30 Fluid Lymphocytes 31.0 % (0-0) H 08/24/17 13:30 Fld Monocyte/Macrophag 11 % (0-0) H 08/24/17 13:30 Fluid Total Protein < 2.0 g/dL (NONE ESTABLISHED) 08/24/17 13:30 Fluid Albumin 0.8 g/dL 08/24/17 13:30 Fluid Comment Light yellow 08/24/17 13:30 Alcohol, Quantitative 222 mg/dl (0-10) H 08/24/17 02:10 - Hospital Course Hospital Course: 47 YO M w/ PMH of htn dm and systolic CHF was admitted for SOB, chest pain, and abdominal distention. While in the hospital patient had a large volume paracentesis of 8.5 L removed w/ IV albumin after paracentesis. Has been on diuretics. Have been giving lactulose for HE prevention. Patient was seen by GI , patient was offered another paracentesis before discharge but patient refused and states he wants to leave the hospital. Counselled on alcohol cessation. Patient will need elective EGD for variceal screening once medically stable and once agreeable to procedure. Can be discharged on low salt diet and diuretics Discharge Exam - Head Exam Head Exam: ATRAUMATIC, NORMAL INSPECTION, NORMOCEPHALIC - Respiratory Exam Respiratory Exam: Clear to PA & Lateral, NORMAL BREATHING PATTERN. absent: Rhonchi, Wheezes - Cardiovascular Exam Cardiovascular Exam: REGULAR RHYTHM, +S1, +S2 - GI/Abdominal Exam GI & Abdominal Exam: Distended, Normal Bowel Sounds, Soft - Neurological Exam Neurological exam: Alert, CN II-XII Intact, Oriented x3 - Skin Skin Exam: Normal Color, Warm Discharge Plan - Discharge Medications Prescriptions: Amoxicillin/Clavulanate [Augmentin 875 MG-125 MG] 1 tab PO Q12 #10 tab NS Furosemide [Lasix] 40 mg PO DAILY #30 tab Lactulose [Enulose] 20 gm PO BID #30 udc Spironolactone [Aldactone] 100 mg PO DAILY #30 tab - Follow Up Plan Condition: STABLE Disposition: HOME/ ROUTINE Instructions: Chest Pain (DC), Ascites (DC), Dyspnea (GEN) Additional Instructions: Patient awake, alert, oriented x 4. Denies any chest pain, shortness of breath, abdominal pain or other complaints. Patient refused paracentesis. Prescriptions sent to [facility] pharmacy and handed to patient. Patient educated regarding medication regimen, alcohol cessation and follow up with Dr. Pittman and Dr. Degroot in one week. Patient offered social work services for intermediate placement as patient is homeless, however, patient is refusing and states he has a safe place to stay. VS stable. Approved for discharge by Dr. Pittman. Referrals: Eber Pittman MD [Staff Provider] - 1 Week Antoinette Degroot MD, MD [Medical Doctor] - 1 Week
== END 2017-08-28 11:00 | disposition home or self-care (01) | DRG 557 ==
LOC: H.ER 00:21 → H.ERHOLD 02:58 → H.TEL 05:07 → OBSVTOIN 08-25 08:29
PROVIDERS: ADMIT Internal Medicine; ATTEND Internal Medicine
PROC: 3E0234Z Introduction of Serum, Toxoid and Vaccine into Muscle, Percutaneous Approach (ICD-10-PCS; 2017-08-24)
PROC: 0W9G3ZZ Drainage of Peritoneal Cavity, Percutaneous Approach (ICD-10-PCS; principal; 2017-08-25)
DX: K70.31 Alcoholic cirrhosis of liver with ascites (principal); I50.42 Chronic combined systolic (congestive) and diastolic (congestive) heart failure; I11.0 Hypertensive heart disease with heart failure; I42.0 Dilated cardiomyopathy; F10.288 Alcohol dependence with other alcohol-induced disorder; F10.239 Alcohol dependence with withdrawal, unspecified; I42.6 Alcoholic cardiomyopathy; J44.9 Chronic obstructive pulmonary disease, unspecified; F10.229 Alcohol dependence with intoxication, unspecified; Y90.7 Blood alcohol level of 200-239 mg/100 ml; E11.9 Type 2 diabetes mellitus without complications; E78.5 Hyperlipidemia, unspecified; I25.10 Atherosclerotic heart disease of native coronary artery without angina pectoris; I49.9 Cardiac arrhythmia, unspecified; I87.8 Other specified disorders of veins; F17.210 Nicotine dependence, cigarettes, uncomplicated; E66.9 Obesity, unspecified; I25.2 Old myocardial infarction; Z59.0 Homelessness; Z95.5 Presence of coronary angioplasty implant and graft; Z95.810 Presence of automatic (implantable) cardiac defibrillator; Z23 Encounter for immunization

== ENCOUNTER 2017-11-25 02:10 | Inpatient (IN) | payer MEDICAID ==
[2017-11-25 02:10] VITALS: BMI 32.3
[2017-11-25 03:19] LABS: BASO % 1.2 % (0.0-2.0); EOS # 0.2 K/uL (0.0-0.7); EOS % 5.2 % (0.0-4.0); HEMOGLOBIN 11.4 g/dL (12.0-18.0); LYMPH # 0.9 K/uL (1.0-4.3); LYMPH % 24.4 % (20.0-40.0); MEAN CELL VOLUME 91.1 fl (80.0-94.0); MEAN CORPUSCULAR HEMOGLOBIN 30.3 pg (27.0-31.0); MEAN CORPUSCULAR HGB CONC 33.3 g/dL (33.0-37.0); MEAN PLATELET VOLUME 7.5 fl (7.2-11.7); MONO # 0.9 K/uL (0.0-0.8); MONO % 23.1 % (0.0-10.0); NEUT # 1.7 K/uL (1.8-7.0); NEUT % 46.1 % (50.0-75.0); NRBC % 0.1 % (0.0-0.0); PLATELET COUNT 238 K/uL (130-400); RBC 3.77 Mil/uL (4.40-5.90); RED CELL DISTRIBUTION WIDTH 16.1 % (11.5-14.5); WHITE BLOOD COUNT 3.8 K/uL (4.8-10.8)
[2017-11-25 03:26] LABS: ALBUMIN 2.6 g/dL (3.5-5.0); BLOOD UREA NITROGEN 11 mg/dl (9-20); CALCIUM 7.6 mg/dL (8.4-10.2); GFR AFRICAN-AMERICAN > 60; GFR NON-AFRICAN AMERICAN > 60
[2017-11-25 03:27] LABS: ALB/GLOB RATIO 0.6 (1.0-2.1); ALT/SGPT 31 U/L (21-72); AST/SGOT 66 U/L (17-59)
[2017-11-25] MEDS ORDERED: HYDROmorphone 0.5 mg/0.5 ml ISec IVP STA (03:34)
[2017-11-25 03:38] LABS: B-TYPE NATRIURETIC PEPTIDE 661 pg/ml (0-450)
[2017-11-25] MEDS ORDERED: Sodium Chloride 0.9% 50 ML IV ONE (03:39)
[2017-11-25] MEDS ORDERED: Iohexol 300 100 ML IJ ONE (03:39)
[2017-11-25 03:40] LABS: PROTHROMBIN TIME 12.1 Seconds (9.8-13.1)
[2017-11-25 03:41] LABS: INR 1.1 (0.9-1.2); PARTIAL THROMBOPLASTIN TIME 32.8 Seconds (25.6-37.1)
[2017-11-25] MEDS ORDERED: HYDROmorphone 0.5 mg/0.5 ml ISec ONE (03:50)
--- NOTE | 2017-11-25 04:09 | ED PDOC ---
HPI: Abdomen Time Seen by Provider: 11/25/17 02:22 Chief Complaint (Nursing): Abdominal Pain Chief Complaint (Provider): Abdominal Pain History Per: Patient History/Exam Limitations: no limitations Onset/Duration Of Symptoms: Hrs (x2-3) Current Symptoms Are (Timing): Still Present Location Of Pain/Discomfort: Diffuse Quality Of Discomfort: "Pain" Associated Symptoms: Chest Pain (squeezing pain) Additional Complaint(s): 47 year old male presents to ED with complaints of abdominal and chest pain x2- 3 hours [employer] and has a past medical history of ascites (admitted to [facility] and underwent paracentesis), liver cirrhosis, alcohol abuse, CAD, and CHF. Patient describes abdominal pain as diffuse and chest pain as a "squeezing" pressure. (+) abdominal distension, left arm pain, and bilateral leg swelling. ( -) rectal bleeding, bloody stool, fever, vomiting, or difficulty breathing. Patient admits to drinking today and not taking the medications prescribed to him at [facility]. PCP: None Past Medical History Reviewed: Historical Data, Nursing Documentation, Vital Signs Vital Signs: Last Vital Signs Temp 98.0 F 11/26/17 00:00 Pulse 115 H 11/26/17 00:00 Resp 18 11/26/17 00:00 BP 103/73 11/26/17 00:00 Pulse Ox 97 11/26/17 00:00 - Medical History PMH: CAD, CHF, COPD, Diabetes, Emphysema, HTN, Hypercholesterolemia, Hyperlipidemia, Peripheral Edema Denies: Chronic Kidney Disease - Surgical History Surgical History: Appendectomy, Coronary Stent (15 yrs ago), Pacemaker (AICD Left) - Family History Family History: States: Unknown Family Hx - Living Arrangements Living Arrangements: Other (Homeless) - Social History Alcohol: > 2 Drinks/Day - Immunization History Hx Tetanus Toxoid Vaccination: Yes Hx Influenza Vaccination: Yes Hx Pneumococcal Vaccination: Yes - Home Medications Home Medications: Ambulatory Orders Medication Instructions Recorded Folic Acid 1 mg PO DAILY #7 tab 11/20/17 Lactulose 20 gm PO BID #1 solution 11/20/17 Spironolactone [Aldactone] 25 mg PO BID #14 tab 11/20/17 Thiamine [Vitamin B1 Tab] 100 mg PO BID #14 tab 11/20/17 - Allergies Allergies/Adverse Reactions: Allergies Allergy/AdvReac Type Severity Reaction Status Date / Time No Known Allergies Allergy Verified 11/20/17 11:56 Review of Systems ROS Statement: Except As Marked, All Systems Reviewed And Found Negative Cardiovascular: Positive for: Chest Pain Gastrointestinal: Positive for: Other ((+) abdominal distension) Musculoskeletal: Positive for: Arm Pain (left), Other ((+) bilateral leg swelling) Physical Exam - Reviewed Nursing Documentation Reviewed: Yes Vital Signs Reviewed: Yes - Physical Exam Appears: Positive for: Non-toxic, Uncomfortable. Negative for: Well Head Exam: Positive for: ATRAUMATIC, NORMOCEPHALIC Skin: Positive for: Normal Color, Warm, Dry Eye Exam: Positive for: EOMI, PERRL, Scleral icterus ENT: Positive for: Normal ENT Inspection Neck: Positive for: Normal, Painless ROM, Supple Cardiovascular/Chest: Positive for: Regular Rate, Rhythm. Negative for: Murmur Respiratory: Positive for: Normal Breath Sounds. Negative for: Respiratory Distress Gastrointestinal/Abdominal: Positive for: Soft, Tenderness (RLQ tenderness > diffuse tenderness), Distended (significant) Extremity: Positive for: Normal ROM, Swelling (bilateral lower leg edema). Negative for: Deformity Neurologic/Psych: Positive for: Alert, Oriented - Laboratory Results Result Diagrams: 11/25/17 03:05 11/25/17 03:05 - ECG O2 Sat by Pulse Oximetry: 100 (RA) Pulse Ox Interpretation: Normal Medical Decision Making Medical Decision Makin Initial impression: chest pain and left arm pain, abdominal pain and constipation DDx: ACS, appendecitis, SBO Initial plan: * CTA A/P * EKG * EtOH serum * Labs * Trop I * ASA 81mg PO * Dilaudid 5mg IVP * Re-eval 0506 CT FINDINGS: Lower thorax: There are cardiac leads from a cardiac rhythm maintenance device. There is bibasilar atelectasis. Cardiomegaly. Small to moderate hiatal hernia with herniation of fluid along the GE junction. ABDOMEN: Liver: Enlarged nodular fatty cirrhotic liver. Gallbladder and bile ducts: Contracted gallbladder with gallstones gallbladder wall thickening and pericholecystic fluid. Pancreas: Peripancreatic infiltration likely reactive versus pancreatitis. No ductal dilation. Spleen: Unremarkable. No splenomegaly. Adrenals: Unremarkable. No mass. Kidneys and ureters: Unremarkable. No solid mass. No hydronephrosis. Stomach and bowel: Diverticulosis. There are nonspecific fluid filled stomach, small bowel loops. These findings can represent ileus versus gastroenteritis/enteritis versus slow transit versus peristalsis versus reactive changes secondary to hepatocellular disease. No obstruction. Appendix: Appendix is not seen. PELVIS: Bladder: Partially distended bladder with bladder wall thickening. Correlation with urinalysis is recommended only if clinical cystitis is suspected. Reproductive: Mild enlargement of prostate gland. ABDOMEN and PELVIS: Intraperitoneal space: Large amount of abdominal and pelvic ascites related to liver disease. Perigastric fluid. There is omental thickening and infiltration. Correlation with clinical data is recommended if peritoneal process process other than hepatocellular disease is clinically suspected. Bones/joints: No acute fracture. No dislocation. L5-S1 disc herniation. Soft tissues: Left more than right inguinal herniation of fat. Nonspecific body wall edema representing anasarca. Vasculature: Unremarkable. No abdominal aortic aneurysm. Lymph nodes: Subcentimeter mesenteric lymph nodes. IMPRESSION: 1. Peripancreatic infiltration likely reactive versus pancreatitis. 2. Large amount of abdominal and pelvic ascites related to liver disease. 3. 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 4.Contracted gallbladder with gallstones gallbladder wall thickening and pericholecystic fluid.these findings were seen on prior examination. 5. There is omental thickening and infiltration. Peritoneal infection and metastasis are in the radiographic differential. Correlation with clinical data is recommended if peritoneal process process other than hepatocellular disease is clinically suspected. There is interval progression of the findings when compared to prior examination. Correlation with internal medicine evaluation and further workup or followup as recommended by patient's clinical data. [address] Pittman, who accepts patient under his service (INPATIENT TELE) Dx: chest pain, ascites, abdominal pain Condition: fair 0650 Dr. Sue is GI consult. Scribe Attestation: Documented by Zehra Boyd acting as a scribe for Geneva Ribera MD. Scribe Attestation: All medical record entries made by the Scribe were at my direction and personally dictated by me. I have reviewed the chart and agree that the record accurately reflects my personal performance of the history, physical exam, medical decision making, and the department course for this patient. I have also personally directed, reviewed, and agree with the discharge instructions and disposition. Disposition - Clinical Impression Clinical Impression: Ascites, Chest pain, Abdominal pain - Patient ED Disposition Is Patient to be Admitted: Yes Discussed With : Eber Pittman Doctor Will See Patient In The: Hospital Counseled Patient/Family Regarding: Studies Performed, Diagnosis - Disposition Disposition Time: 06:42 Condition: FAIR - Pt Status Changed To: Hospital Disposition Of: Inpatient (INPATIENT TELE) - Admit Certification Admit to Inpatient:: After my assessment, the patient will require hospitalization for at least two midnights. This is because of the severity of symptoms shown, intensity of services needed, and/or the medical risk in this patient being treated as an outpatient. - POA Present On Arrival: None
--- NOTE | 2017-11-25 05:06 | CT ---
EXAM: CT Abdomen and Pelvis With Intravenous Contrast CLINICAL HISTORY: 47 years old, male; Pain; Abdominal pain; Generalized TECHNIQUE: Axial computed tomography images of the abdomen and pelvis with intravenous contrast. All CT scans at this facility use one or more dose reduction techniques, viz.: automated exposure control; ma/kV adjustment per patient size (including targeted exams where dose is matched to indication; i.e. head); or iterative reconstruction technique. 540 images are submitted. Coronal and sagittal reformatted images were created and reviewed. CONTRAST: 95 mL of OMNI 300 administered intravenously. COMPARISON: CT - LIVER PROTOCOL TRIPLE PHASE 2017-08-25 17:57 FINDINGS: Lower thorax: There are cardiac leads from a cardiac rhythm maintenance device. There is bibasilar atelectasis. Cardiomegaly. Small to moderate hiatal hernia with herniation of fluid along the GE junction. ABDOMEN: Liver: Enlarged nodular fatty cirrhotic liver. Gallbladder and bile ducts: Contracted gallbladder with gallstones gallbladder wall thickening and pericholecystic fluid. Pancreas: Peripancreatic infiltration likely reactive versus pancreatitis. No ductal dilation. Spleen: Unremarkable. No splenomegaly. Adrenals: Unremarkable. No mass. Kidneys and ureters: Unremarkable. No solid mass. No hydronephrosis. Stomach and bowel: Diverticulosis. There are nonspecific fluid filled stomach, small bowel loops. These findings can represent ileus versus gastroenteritis/enteritis versus slow transit versus peristalsis versus reactive changes secondary to hepatocellular disease. No obstruction. Appendix: Appendix is not seen. PELVIS: Bladder: Partially distended bladder with bladder wall thickening. Correlation with urinalysis is recommended only if clinical cystitis is suspected. Reproductive: Mild enlargement of prostate gland. ABDOMEN and PELVIS: Intraperitoneal space: Large amount of abdominal and pelvic ascites related to liver disease. Perigastric fluid. There is omental thickening and infiltration. Correlation with clinical data is recommended if peritoneal process process other than hepatocellular disease is clinically suspected. Bones/joints: No acute fracture. No dislocation. L5-S1 disc herniation. Soft tissues: Left more than right inguinal herniation of fat. Nonspecific body wall edema representing anasarca. Vasculature: Unremarkable. No abdominal aortic aneurysm. Lymph nodes: Subcentimeter mesenteric lymph nodes. IMPRESSION: 1. Peripancreatic infiltration likely reactive versus pancreatitis. 2. Large amount of abdominal and pelvic ascites related to liver disease. 3. 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 4.Contracted gallbladder with gallstones gallbladder wall thickening and pericholecystic fluid.these findings were seen on prior examination. 5. There is omental thickening and infiltration. Peritoneal infection and metastasis are in the radiographic differential. Correlation with clinical data is recommended if peritoneal process process other than hepatocellular disease is clinically suspected. There is interval progression of the findings when compared to prior examination. Correlation with internal medicine evaluation and further workup or followup as recommended by patient's clinical data.
[2017-11-25 06:14] LABS: ANISOCYTOSIS SLIGHT; BASOPHIL 1 % (0-2); EOSINOPHIL 1 % (0-7); LYMPHOCYTE 25 % (20-50); MONOCYTE 20 % (0-10); NEUTROPHIL 53 % (42-75); PLATELET ESTIMATE NORMAL (NORMAL); TOTAL CELLS COUNTED 100
--- NOTE | 2017-11-25 10:00 | CP.PCM.CON ---
History of Present Illness - History of Present Illness History of Present Illness: 47 yo male with h/o alcohol use and ascites admitted with chest pain and increasing abdominal pain. Has been at [facility] in the past and unerwent parascentesis. Review of Systems - Constitutional Constitutional: absent: Chills - EENT Eyes: absent: Blurred Vision Ears: absent: Decreased Hearing Nose/Mouth/Throat: absent: Epistaxis - Cardiovascular Cardiovascular: Chest Pain - Gastrointestinal Gastrointestinal: As Per HPI Past Patient History - Infectious Disease Hx of Infectious Diseases: None - Past Medical History & Family History Past Medical History?: Yes - Past Social History Alcohol: > 2 Drinks/Day - CARDIAC Hx Congestive Heart Failure: Yes Hx Hypercholesterolemia: Yes Hx Hypertension: Yes Hx Pacemaker: Yes (AICD Left) Hx Peripheral Edema: Yes - PULMONARY Hx Chronic Obstructive Pulmonary Disease (COPD): Yes Hx Emphysema: Yes - NEUROLOGICAL Hx Neurological Disorder: Yes - HEENT Hx HEENT Problems: No - RENAL Hx Chronic Kidney Disease: No - ENDOCRINE/METABOLIC Hx Endocrine Disorders: Yes Hx Diabetes Mellitus Type 2: Yes - HEMATOLOGICAL/ONCOLOGICAL Hx Blood Disorders: No - INTEGUMENTARY Hx Dermatological Problems: No - MUSCULOSKELETAL/RHEUMATOLOGICAL Hx Falls: No - GASTROINTESTINAL Hx Gastrointestinal Disorders: Yes Hx Nausea: Yes Hx Vomiting: Yes Other/Comment: liver problems, patient has ascites, patient has paracentesis every month. - GENITOURINARY/GYNECOLOGICAL Hx Genitourinary Disorders: No - PSYCHIATRIC Hx Psychophysiologic Disorder: No Hx Substance Use: No - SURGICAL HISTORY Hx Appendectomy: Yes Hx Coronary Stent: Yes (15 yrs ago) - ANESTHESIA Hx Anesthesia: Yes Hx Anesthesia Reactions: No Hx Malignant Hyperthermia: No Meds Allergies/Adverse Reactions: Allergies Allergy/AdvReac Type Severity Reaction Status Date / Time No Known Allergies Allergy Verified 11/20/17 11:56 Physical Exam - Constitutional Appears: Well - Head Exam Head Exam: ATRAUMATIC - Eye Exam Eye Exam: Normal appearance - ENT Exam ENT Exam: Mucous Membranes Moist - Neck Exam Neck exam: Positive for: Normal Inspection - Respiratory Exam Respiratory Exam: Clear to Auscultation Bilateral - Cardiovascular Exam Cardiovascular Exam: REGULAR RHYTHM, +S1, +S2 - GI/Abdominal Exam GI & Abdominal Exam: Distended, Firm, Normal Bowel Sounds, Soft Results - Vital Signs Recent Vital Signs: Last Vital Signs Temp 98.9 F 11/25/17 02:14 Pulse 84 11/25/17 06:04 Resp 18 11/25/17 06:04 BP 100/76 11/25/17 06:04 Pulse Ox 100 11/25/17 06:50 - Labs Result Diagrams: 11/25/17 03:05 11/25/17 03:05 Labs: Laboratory Results - last 24 hr 11/25/17 11/25/17 11/25/17 03:05 03:05 03:05 WBC 3.8 L RBC 3.77 L Hgb 11.4 L Hct 34.3 L MCV 91.1 D MCH 30.3 MCHC 33.3 RDW 16.1 H Plt Count 238 MPV 7.5 Neut % (Auto) 46.1 L Lymph % (Auto) 24.4 [place] % (Auto) 23.1 H Eos % (Auto) 5.2 H Baso % (Auto) 1.2 Neut # 1.7 L Lymph # 0.9 L [place] # 0.9 H Eos # 0.2 Baso # 0.0 Neutrophils % (Manual) 53 Lymphocytes % (Manual) 25 Monocytes % (Manual) 20 H Eosinophils % (Manual) 1 Basophils % (Manual) 1 Platelet Estimate Normal Anisocytosis (manual) Slight PT INR APTT Sodium 138 Potassium 3.8 Chloride 106 Carbon Dioxide 21 L Anion Gap 15 BUN 11 Creatinine 0.9 Est GFR ( Amer) > 60 Est GFR (Non-Af Amer) > 60 POC Glucose (mg/dL) 95 Random Glucose 105 Calcium 7.6 L Total Bilirubin 0.4 AST 66 H ALT 31 Alkaline Phosphatase 191 H Troponin I 0.0200 NT-Pro-B Natriuret Pep 661 H Total Protein 7.0 Albumin 2.6 L Globulin 4.4 H Albumin/Globulin Ratio 0.6 L Alcohol, Quantitative 163 H 11/25/17 03:05 WBC RBC Hgb Hct MCV MCH MCHC RDW Plt Count MPV Neut % (Auto) Lymph % (Auto) [place] % (Auto) Eos % (Auto) Baso % (Auto) Neut # Lymph # [place] # Eos # Baso # Neutrophils % (Manual) Lymphocytes % (Manual) Monocytes % (Manual) Eosinophils % (Manual) Basophils % (Manual) Platelet Estimate Anisocytosis (manual) PT 12.1 INR 1.1 APTT 32.8 Sodium Potassium Chloride Carbon Dioxide Anion Gap BUN Creatinine Est GFR ( Amer) Est GFR (Non-Af Amer) POC Glucose (mg/dL) Random Glucose Calcium Total Bilirubin AST ALT Alkaline Phosphatase Troponin I NT-Pro-B Natriuret Pep Total Protein Albumin Globulin Albumin/Globulin Ratio Alcohol, Quantitative Assessment & Plan (1) Ascites Assessment and Plan: Worstening ascites in patient with h/o alcohol use. . CT shows nodular liver and omental infiltration which appears to have progressed.. Will get CEA and quantiferon TB gold. Please arrange diagnostic and therapeautic parascentesis including cytology and other routine studies on ascitic fluid. Status: Acute
--- NOTE | 2017-11-25 11:04 | CARD ---
APPROVED REPORT EKG Measurement Heart [id number] PA [id number] <Conclusion> Sinus rhythm with occasional premature ventricular complexes Left axis deviation Left bundle branch block Abnormal ECG
[2017-11-25] MEDS ORDERED: Sodium Chloride 0.9% 1,000 ML IV SCH (13:45)
--- NOTE | 2017-11-25 17:29 | CP.PCM.HP ---
History of Present Illness - History of Present Illness History of Present Illness: 47 yr old M presented to ED with complaint of abdominal pain and chest pain which started today. PMHx includes alcoholic liver cirrhosis with ascites, Systolic CHF with EF of 29%, s/p AICD November 2015, CAD w/ stent, NIDDM type 2. Described chest pain as squeezing in nature, intermittent, mild. Denies nausea, vomiting, sweating, syncope or chills, or radiation of pain to limbs. Admits to drinking alcohol >2 drinks today. Signed out AMA from [facility] on s/p paracentesis done on 11/18/17. PMD: none PMHx: alcoholic liver cirrhosis with ascites, Systolic CHF with EF of 29%, s/p AICD November 2015, CAD w/ stent, NIDDM type 2 SurgHx: appendectomy, November 2015, CAD w/ stent, recurrent paracentesis (; 09/05/17; 03/28/17) SocHx: current etoh abuse Present on Admission - Present on Admission Any Indicators Present on Admission: No History of DVT/PE: No History of Uncontrolled Diabetes: No Urinary Catheter: No Decubitus Ulcer Present: No History Surgical Site Infection Following: None Review of Systems - Review of Systems All systems: reviewed and no additional remarkable complaints except (for what is mentioned in the HPI) - Constitutional Constitutional: absent: Chills, Fever, Headache - EENT Eyes: absent: Blurred Vision, Change in Vision Ears: absent: Dizziness Nose/Mouth/Throat: absent: Nasal Congestion, Nasal Discharge - Cardiovascular Cardiovascular: Chest Pain, Leg Edema. absent: Dyspnea, Syncope - Respiratory Respiratory: absent: Cough, Hemoptysis - Genitourinary Genitourinary: absent: Difficulty Urinating, Dysuria - Musculoskeletal Musculoskeletal: absent: Numbness - Neurological Neurological: absent: Confusion, Dizziness, Focal Weakness - Endocrine Endocrine: absent: Polydipsia, Polyuria - Hematologic/Lymphatic Hematologic: absent: Easy Bleeding, Easy Bruising Past Patient History - Infectious Disease Hx of Infectious Diseases: None - Past Medical History & Family History Past Medical History?: Yes - Past Social History Alcohol: > 2 Drinks/Day - CARDIAC Hx Congestive Heart Failure: Yes Hx Hypercholesterolemia: Yes Hx Hypertension: Yes Hx Pacemaker: Yes (AICD Left) Hx Peripheral Edema: Yes - PULMONARY Hx Chronic Obstructive Pulmonary Disease (COPD): Yes Hx Emphysema: Yes - NEUROLOGICAL Hx Neurological Disorder: Yes - HEENT Hx HEENT Problems: No - RENAL Hx Chronic Kidney Disease: No - ENDOCRINE/METABOLIC Hx Endocrine Disorders: Yes - HEMATOLOGICAL/ONCOLOGICAL Hx Blood Disorders: No - INTEGUMENTARY Hx Dermatological Problems: No - MUSCULOSKELETAL/RHEUMATOLOGICAL Hx Falls: No - GASTROINTESTINAL Hx Gastrointestinal Disorders: Yes Hx Nausea: Yes Hx Vomiting: Yes Other/Comment: liver problems, patient has ascites, patient has paracentesis every month. - GENITOURINARY/GYNECOLOGICAL Hx Genitourinary Disorders: No - PSYCHIATRIC Hx Psychophysiologic Disorder: No - SURGICAL HISTORY Hx Appendectomy: Yes Hx Coronary Stent: Yes (15 yrs ago) - ANESTHESIA Hx Anesthesia: Yes Hx Anesthesia Reactions: No Hx Malignant Hyperthermia: No Meds Allergies/Adverse Reactions: Allergies Allergy/AdvReac Type Severity Reaction Status Date / Time No Known Allergies Allergy Verified 11/20/17 11:56 Physical Exam - Constitutional Appears: No Acute Distress, Unkempt, Chronically Ill - Head Exam Head Exam: ATRAUMATIC, NORMOCEPHALIC - Eye Exam Eye Exam: EOMI, Scleral icterus - ENT Exam ENT Exam: Mucous Membranes Moist Additional comments: poor dental hygiene, missing multiple front teeth - Neck Exam Neck exam: Positive for: Full Rom. Negative for: Lymphadenopathy - Respiratory Exam Respiratory Exam: NORMAL BREATHING PATTERN - Cardiovascular Exam Cardiovascular Exam: REGULAR RHYTHM, +S1, +S2 - GI/Abdominal Exam GI & Abdominal Exam: Distended, Normal Bowel Sounds, Tenderness (diffuse) - Extremities Exam Extremities exam: Positive for: full ROM, pedal edema (+2 bilaterally) - Neurological Exam Neurological exam: Alert, CN II-XII Intact, Oriented x3 - Psychiatric Exam Psychiatric exam: Anxious - Skin Skin Exam: Dry, Warm Results - Vital Signs Recent Vital Signs: Last Vital Signs Temp 98.9 F 11/25/17 16:30 Pulse 84 11/25/17 16:30 Resp 19 11/25/17 16:30 BP 106/72 11/25/17 16:30 Pulse Ox 99 11/25/17 16:30 - Labs Result Diagrams: 11/25/17 03:05 11/25/17 03:05 Labs: Laboratory Results - last 24 hr 11/25/17 11/25/17 11/25/17 03:05 03:05 03:05 WBC 3.8 L RBC 3.77 L Hgb 11.4 L Hct 34.3 L MCV 91.1 D MCH 30.3 MCHC 33.3 RDW 16.1 H Plt Count 238 MPV 7.5 Neut % (Auto) 46.1 L Lymph % (Auto) 24.4 [place] % (Auto) 23.1 H Eos % (Auto) 5.2 H Baso % (Auto) 1.2 Neut # 1.7 L Lymph # 0.9 L [place] # 0.9 H Eos # 0.2 Baso # 0.0 Neutrophils % (Manual) 53 Lymphocytes % (Manual) 25 Monocytes % (Manual) 20 H Eosinophils % (Manual) 1 Basophils % (Manual) 1 Platelet Estimate Normal Anisocytosis (manual) Slight PT INR APTT Sodium 138 Potassium 3.8 Chloride 106 Carbon Dioxide 21 L Anion Gap 15 BUN 11 Creatinine 0.9 Est GFR ( Amer) > 60 Est GFR (Non-Af Amer) > 60 POC Glucose (mg/dL) 95 Random Glucose 105 Calcium 7.6 L Total Bilirubin 0.4 AST 66 H ALT 31 Alkaline Phosphatase 191 H Troponin I 0.0200 NT-Pro-B Natriuret Pep 661 H Total Protein 7.0 Albumin 2.6 L Globulin 4.4 H Albumin/Globulin Ratio 0.6 L Carcinoembryonic Ag Alcohol, Quantitative 163 H 11/25/17 11/25/17 03:05 11:43 WBC RBC Hgb Hct MCV MCH MCHC RDW Plt Count MPV Neut % (Auto) Lymph % (Auto) [place] % (Auto) Eos % (Auto) Baso % (Auto) Neut # Lymph # [place] # Eos # Baso # Neutrophils % (Manual) Lymphocytes % (Manual) Monocytes % (Manual) Eosinophils % (Manual) Basophils % (Manual) Platelet Estimate Anisocytosis (manual) PT 12.1 INR 1.1 APTT 32.8 Sodium Potassium Chloride Carbon Dioxide Anion Gap BUN Creatinine Est GFR ( Amer) Est GFR (Non-Af Amer) POC Glucose (mg/dL) Random Glucose Calcium Total Bilirubin AST ALT Alkaline Phosphatase Troponin I NT-Pro-B Natriuret Pep Total Protein Albumin Globulin Albumin/Globulin Ratio Carcinoembryonic Ag 3.9 H Alcohol, Quantitative Assessment & Plan - Assessment and Plan (Free Text) Assessment: 47 yr old admitted for pancreatitis with significant abdominal ascites and Etoh intoxication. -admit to telemetry -Librium 25mg PO Q6 -GI on consult: will follow recommendations, paracentesis ordered -resume home meds (lactulose, spironolactone, thiamine, folic acid) -IVF at 70cc/hr -monitor I&O -f/u AM labs - Date & Time Date: 11/25/17 Time: 10:00
[2017-11-26 06:28] LABS: HEMOGLOBIN 11.7 g/dL (12.0-18.0); MEAN CELL VOLUME 92.4 fl (80.0-94.0); MEAN CORPUSCULAR HEMOGLOBIN 29.9 pg (27.0-31.0); MEAN CORPUSCULAR HGB CONC 32.4 g/dL (33.0-37.0); RBC 3.89 Mil/uL (4.40-5.90); RED CELL DISTRIBUTION WIDTH 16.4 % (11.5-14.5)
[2017-11-26 06:36] LABS: BLOOD UREA NITROGEN 10 mg/dl (9-20); CALCIUM 7.9 mg/dL (8.4-10.2); GFR AFRICAN-AMERICAN > 60; GFR NON-AFRICAN AMERICAN > 60
--- NOTE | 2017-11-26 10:03 | CP.PCM.PN ---
Subjective - Date & Time of Evaluation Date of Evaluation: 11/26/17 Time of Evaluation: 09:30 - Subjective Subjective: Patient seen and examined at bedside with attending-Dr. Pittman. Telemetry reviewed. Abdominal discomfort persists. Denies nausea, vomiting, chest pain, SOB, weakness or dizziness. Objective - Vital Signs/Intake and Output Vital Signs (last 24 hours): Temp Pulse Resp BP Pulse Ox 98.1 F 85 18 103/72 97 11/26/17 08:00 11/26/17 08:00 11/26/17 08:00 11/26/17 08:00 11/26/17 08:00 - Medications Medications: Current Medications Chlordiazepoxide (Librium) 25 mg PO Q6 [facility] Last Admin: 11/26/17 09:20 Dose: 25 mg Folic Acid (Folic Acid) 1 mg PO DAILY [facility] Last Admin: 11/26/17 09:03 Dose: 1 mg Lactulose (Enulose) 20 gm PO BID [facility] Last Admin: 11/26/17 09:21 Dose: 20 gm Spironolactone (Aldactone) 25 mg PO BID [facility] Last Admin: 11/26/17 09:03 Dose: 25 mg Thiamine HCl (Vitamin B1 Tab) 100 mg PO BID [facility] Last Admin: 11/26/17 09:03 Dose: 100 mg Tramadol HCl (Ultram) 50 mg PO Q6 PRN PRN Reason: Pain, moderate (4-7) Last Admin: 11/25/17 22:14 Dose: 50 mg - Labs Labs: 11/26/17 05:00 11/26/17 05:00 PT 12.1 Seconds (9.8-13.1) 11/25/17 03:05 INR 1.1 (0.9-1.2) 11/25/17 03:05 APTT 32.8 Seconds (25.6-37.1) 11/25/17 03:05 - Constitutional Appears: No Acute Distress - Head Exam Head Exam: ATRAUMATIC, NORMOCEPHALIC - Eye Exam Eye Exam: EOMI - ENT Exam ENT Exam: Mucous Membranes Moist - Neck Exam Neck Exam: Full ROM - Respiratory Exam Respiratory Exam: Clear to Ausculation Bilateral, NORMAL BREATHING PATTERN - Cardiovascular Exam Cardiovascular Exam: REGULAR RHYTHM, +S1, +S2 - GI/Abdominal Exam GI & Abdominal Exam: Distended - Extremities Exam Extremities Exam: Full ROM - Neurological Exam Neurological Exam: Alert, Awake - Psychiatric Exam Psychiatric exam: Normal Affect, Normal Mood - Skin Skin Exam: Dry, Warm Assessment and Plan - Assessment and Plan (Free Text) Assessment: 47 yr old admitted for pancreatitis with significant abdominal ascites and Etoh intoxication. -Librium 25mg PO Q6 -GI on consult: will follow recommendations, paracentesis ordered -resume home meds (lactulose, spironolactone, thiamine, folic acid) -IVF at 70cc/hr -monitor I&O -heart healthy diet -PT/OT
[2017-11-26] MEDS ORDERED: Lidocaine 1% Inj (20ml) ONE (15:24)
[2017-11-26 15:39] VITALS: O2SAT 99
--- NOTE | 2017-11-26 16:20 | PCM.SURG1 ---
Surgeon's Initial Post Op Note - Surgeon's Notes Surgeon: Alex Skaggs MD [employer] Consultant: None Type of Anesthesia: Local Pre-Operative Diagnosis: cirrhosis, ascites Operative Findings: large volume ascites Post-Operative Diagnosis: same Operation Performed: US guided paracentesis Specimen/Specimens Removed: 9 L straw colored fluid removed. sample submitted. Estimated Blood Loss: EBL {In ML}: 0 Date of Surgery/Procedure: 11/26/17 Time of Surgery/Procedure: 16:30
[2017-11-26 16:34] VITALS: BP 114/71; PULSE 89; RESP 15; TEMP 97.2
[2017-11-26 18:06] LABS: BODY FLUID TYPE PERITONEAL/ASCITES
[2017-11-26 18:29] LABS: AMYLASE,BODY FLUID < 30 mg/dL (NONE ESTABLISHED); GLUCOSE,BODY FLUID 103 mg/dL (NONE ESTABLISHED)
[2017-11-26 19:09] LABS: BF GROSS APPEARANCE SL CLOUDY (CLEAR)
[2017-11-26 19:21] LABS: BODY FLUID MONO/MACROPHAGE 26 % (0-0); BODY FLUID TOTAL COUNT 100 (0-0)
[2017-11-27 06:47] LABS: TB ANTIGEN MINUS NIL 0.02 IU/mL
--- NOTE | 2017-11-30 09:33 | US ---
PROCEDURE: ULTRASOUND-GUIDED PARACENTESIS CLINICAL HISTORY: 47-year-old male with alcoholic cirrhosis and recurrent symptomatic ascites is referred to Interventional Radiology for ultrasound-guided paracentesis. COMPARISON: Paracentesis performed 09/04/2017. PROCEDURE: 1. Ultrasound-guided paracentesis. PRE-PROCEDURE FINDINGS: 1. Large volume ascites. POST-PROCEDURE FINDINGS: 1. No evidence of post-procedural complication. INTERVENTIONAL RADIOLOGIST: Alex Skaggs M.D. (the attending was present for the entire procedure) ANESTHESIA: None. MEDICATION: Lidocaine 1% for local subcutaneous analgesia. COMPLICATIONS: None. PROCEDURE DESCRIPTION AND FINDINGS: The risks, benefits, alternatives and possible complications of the procedure were fully discussed; all questions were answered and informed consent was obtained. The patient was brought into the interventional suite and a pre-procedure 'time-out' was performed. The patient was placed on the fluoroscopy table in the supine position. Preliminary ultrasound images of the right lower quadrant demonstrate a large amount of ascites. The right lower quadrant was prepped and draped in the usual sterile fashion. Maximum sterile barrier precautions were maintained throughout the entire procedure. Following subcutaneous infiltration of lidocaine 1% for local analgesia, under real-time ultrasound guidance, a 5 Kinyarwanda centesis catheter was advanced into the right lower quadrant with real-time visualization of needle entry. The ultrasound images were permanently recorded and submitted to the PACS. The inner stylet was removed and the catheter was attached to gentle vacuum suction. A total of 9 liters of straw-colored fluid were aspirated. A sample was submitted to the laboratory for analysis. The drainage catheter was then removed. A sterile adhesive bandage was placed over the puncture site. The patient tolerated the procedure well without immediate post-procedure complications and was transferred back to the floor in stable condition. IMPRESSION: SUCCESSFUL ULTRASOUND-GUIDED DIAGNOSTIC AND THERAPEUTIC PARACENTESIS.
== END 2017-11-26 17:35 | disposition home or self-care (01) | DRG 557 ==
LOC: H.ER 02:10 → H.ERHOLD 06:41 → H.TEL 16:05
PROVIDERS: ADMIT Internal Medicine; ATTEND Internal Medicine
PROC: 0W9G3ZZ Drainage of Peritoneal Cavity, Percutaneous Approach (ICD-10-PCS; principal; 2017-11-25)
DX: K70.31 Alcoholic cirrhosis of liver with ascites (principal); I50.22 Chronic systolic (congestive) heart failure; K85.90 Acute pancreatitis without necrosis or infection, unspecified; K72.90 Hepatic failure, unspecified without coma; I11.0 Hypertensive heart disease with heart failure; J43.9 Emphysema, unspecified; E11.9 Type 2 diabetes mellitus without complications; E78.00 Pure hypercholesterolemia, unspecified; E78.5 Hyperlipidemia, unspecified; I25.10 Atherosclerotic heart disease of native coronary artery without angina pectoris; Z95.5 Presence of coronary angioplasty implant and graft; Z95.810 Presence of automatic (implantable) cardiac defibrillator; Z59.0 Homelessness; K80.20 Calculus of gallbladder without cholecystitis without obstruction; F10.129 Alcohol abuse with intoxication, unspecified; Y90.6 Blood alcohol level of 120-199 mg/100 ml; K59.00 Constipation, unspecified

== ENCOUNTER 2018-03-10 03:31 | Emergency (ER) | payer MEDICAID ==
[2018-03-10 03:31] VITALS: BMI 30.4
[2018-03-10 03:38] VITALS: RESP 16
--- NOTE | 2018-03-10 03:55 | ED PDOC ---
HPI: Abdomen Time Seen by Provider: 03/10/18 03:45 Chief Complaint (Nursing): Alcohol Ingestion Chief Complaint (Provider): abdominal pain History Per: Patient, EMS History/Exam Limitations: no limitations Onset/Duration Of Symptoms: Days Current Symptoms Are (Timing): Still Present Location Of Pain/Discomfort: Diffuse Last Bowel Movement: Days Ago (3) Additional History Per: Patient Additional Complaint(s): 47 y/o male brought in by EMS complaining of abdominal pain. Patient was picked up for public intoxication. Associated constipation x 3 days. Patient admits to drinking vodka tonight. Denies fever, nausea/vomiting, chest pain, palpitations, urinary symptoms. Past Medical History Reviewed: Historical Data, Nursing Documentation, Vital Signs Vital Signs: Last Vital Signs Temp 98.0 F 03/10/18 03:36 Pulse 94 H 03/10/18 03:36 Resp 16 03/10/18 03:36 BP 115/57 L 03/10/18 03:36 Pulse Ox 99 03/10/18 05:14 - Medical History PMH: CAD, Cardia Arrhythmia, CHF, COPD, Diabetes, Emphysema, HTN, Hypercholesterolemia, Hyperlipidemia, Peripheral Edema Denies: Chronic Kidney Disease - Surgical History Surgical History: Appendectomy, Coronary Stent (15 yrs ago), Pacemaker - Family History Family History: States: Unknown Family Hx - Social History Alcohol: > 2 Drinks/Day - Immunization History Hx Tetanus Toxoid Vaccination: Yes Hx Influenza Vaccination: Yes Hx Pneumococcal Vaccination: Yes - Home Medications Home Medications: Ambulatory Orders Medication Instructions Recorded Aspirin [Aspirin Chewable] 81 mg PO DAILY 30 Days #30 chew 01/08/18 Docusate [Colace] 100 mg PO BID 30 Days #60 cap 01/08/18 Folic Acid 1 mg PO DAILY 30 Days #30 tab 01/08/18 Furosemide [Lasix] 40 mg PO DAILY 30 Days #30 tablet 01/08/18 Lactulose [Enulose] 20 gm PO BID 30 Days #60 udc 01/08/18 Multivitamins [Hexavitamin] 1 tab PO DAILY 30 Days #30 tab 01/08/18 Spironolactone [Aldactone] 50 mg PO BID 30 Days #60 tab 01/08/18 Thiamine [Vitamin B1 Tab] 100 mg PO DAILY 02/25/18 - Allergies Allergies/Adverse Reactions: Allergies Allergy/AdvReac Type Severity Reaction Status Date / Time No Known Allergies Allergy Verified 03/08/18 01:08 Review of Systems ROS Statement: Except As Marked, All Systems Reviewed And Found Negative Gastrointestinal: Positive for: Abdominal Pain, Constipation Physical Exam - Reviewed Nursing Documentation Reviewed: Yes Vital Signs Reviewed: Yes - Physical Exam Appears: Positive for: Well, Non-toxic, No Acute Distress (intoxicated; +AOB) Head Exam: Positive for: ATRAUMATIC, NORMAL INSPECTION, NORMOCEPHALIC Skin: Positive for: Normal Color Eye Exam: Positive for: Normal appearance ENT: Positive for: Normal ENT Inspection Cardiovascular/Chest: Positive for: Regular Rate, Rhythm Respiratory: Positive for: Normal Breath Sounds Gastrointestinal/Abdominal: Positive for: Bowel Sounds, Soft, Asicites Back: Positive for: Normal Inspection Extremity: Positive for: Normal ROM Neurologic/Psych: Positive for: Alert, Oriented - Laboratory Results Result Diagrams: 03/10/18 04:00 03/10/18 04:00 - ECG ECG: Positive for: Viewed By Me (reviewed by ED attending) ECG Rhythm: Positive for: Sinus Rhythm, Left Bundle Branch Block O2 Sat by Pulse Oximetry: 99 - Progress ED Course And Treament: Upon entering exam room patient requesting blanket and light to be turned off. Chart reviewed, patient admitted to [facility] for same and discharged less than 24 hours ago. Will check labs including alcohol level, administer IV toradol On re-eval, patient sleeping; no distress. No indication for paracentesis at this time; no peritoneal signs, afebrile, no WBC elevation or other significant lab abnormalities noted. Will observe for clinical sobriety 6:00 Patient awake, alert, oriented x3. Ambulating steady gait. Patient was advised to follow up with PMD/GI and to discontinue alcohol use as previously reinforced. Patient requires no further intervention in ED and is stable for discharge. Return precautions given Disposition - Clinical Impression Clinical Impression: Alcohol abuse with intoxication, Abdominal pain, Ascites due to alcoholic cirrhosis - Disposition Referrals: [facility] [Outside] Ranjeet Arenas MD, PhD [Staff Provider] - Disposition: Routine/Home Condition: IMPROVED Instructions: Acute Abdomen (Belly Pain), Adult (DC), Alcohol Abuse and Alcoholism (DC), Cirrhosis
[2018-03-10 04:13] LABS: BASO % 0.4 % (0.0-2.0); EOS # 0.1 K/uL (0.0-0.7); EOS % 2.7 % (0.0-4.0); HEMOGLOBIN 11.9 g/dL (12.0-18.0); LYMPH # 1.2 K/uL (1.0-4.3); LYMPH % 30.1 % (20.0-40.0); MEAN CELL VOLUME 92.7 fl (80.0-94.0); MEAN CORPUSCULAR HEMOGLOBIN 31.3 pg (27.0-31.0); MEAN CORPUSCULAR HGB CONC 33.8 g/dL (33.0-37.0); MEAN PLATELET VOLUME 7.6 fl (7.2-11.7); MONO # 0.5 K/uL (0.0-0.8); MONO % 13.8 % (0.0-10.0); NRBC % 0.2 % (0.0-0.0); RBC 3.8 Mil/uL (4.40-5.90); RED CELL DISTRIBUTION WIDTH 21.1 % (11.5-14.5); WHITE BLOOD COUNT 3.8 K/uL (4.8-10.8)
[2018-03-10 04:18] LABS: PARTIAL THROMBOPLASTIN TIME 34.1 Seconds (25.6-37.1); PROTHROMBIN TIME 11.3 Seconds (9.8-13.1)
[2018-03-10 04:21] LABS: ALB/GLOB RATIO 0.6 (1.0-2.1); ALBUMIN 2.8 g/dL (3.5-5.0); ALT/SGPT 39 U/L (21-72); AST/SGOT 80 U/L (17-59); BLOOD UREA NITROGEN 15 mg/dl (9-20); CALCIUM 7.4 mg/dL (8.4-10.2); GFR AFRICAN-AMERICAN > 60; GFR NON-AFRICAN AMERICAN > 60; LIPASE 432 U/L (23-300)
[2018-03-10 06:00] VITALS: BP 110/70; PULSE 86; TEMP 98.2; O2SAT 98
--- NOTE | 2018-03-11 12:26 | CARD ---
APPROVED REPORT EKG Measurement Heart [id number] <Conclusion> Normal sinus rhythm Left bundle branch block Abnormal ECG
== END 2018-03-10 05:57 | disposition home or self-care (01) ==
LOC: H.ER 03:31
DX: F10.129 Alcohol abuse with intoxication, unspecified (principal); K70.31 Alcoholic cirrhosis of liver with ascites; E11.9 Type 2 diabetes mellitus without complications; E78.00 Pure hypercholesterolemia, unspecified; I11.0 Hypertensive heart disease with heart failure
CPT/HCPCS: 80053; 80320; 82140; 82948; 83690; 85025; 85610; 85730; 93005; 96374; 99284; J1885

== ENCOUNTER 2019-02-15 00:11 | Emergency (ER) | payer MEDICAID ==
[2019-02-15 00:18] VITALS: BMI 27.3
[2019-02-15 00:20] VITALS: TEMP 98.8
[2019-02-15 04:02] VITALS: BP 102/61; RESP 18; O2SAT 98
[2019-02-15 06:53] LABS: BASO % 0.5 % (0.0-2.0); EOS % 0.7 % (0.0-4.0); LYMPH # 0.9 K/uL (1.0-4.3); LYMPH % 21.7 % (20.0-40.0); MEAN CELL VOLUME 90.3 fl (80.0-94.0); MEAN CORPUSCULAR HEMOGLOBIN 28.8 pg (27.0-31.0); MEAN CORPUSCULAR HGB CONC 31.9 g/dL (33.0-37.0); MEAN PLATELET VOLUME 8.3 fl (7.2-11.7); MONO # 0.6 K/uL (0.0-0.8); NEUT # 2.6 K/uL (1.8-7.0); NEUT % 63.1 % (50.0-75.0); RBC 3.13 Mil/uL (4.40-5.90); RED CELL DISTRIBUTION WIDTH 18.9 % (11.5-14.5)
--- NOTE | 2019-02-15 07:07 | ED PDOC ---
HPI: Psych/Substance Abuse Time Seen by Provider: 02/15/19 01:40 Chief Complaint (Nursing): Alcohol Ingestion Chief Complaint (Provider): Alcohol Ingestion History Per: Patient History/Exam Limitations: no limitations Onset/Duration Of Symptoms: Hrs Current Symptoms Are (Timing): Better Modifying Factor(s): Alcohol Additional Complaint(s): 48 year old male with a history of substance abuse and HTN presents to the ED after he was found slumped on the sidewalk. Patient was intoxication upon arrival with alcohol level of 192. Currently, he is sleeping and not in distress in the ED. He was discharged from [facility] with failure to thrive and orthostatic hypertension. PMD: No family provider Past Medical History Reviewed: Historical Data, Nursing Documentation, Vital Signs Vital Signs: Last Vital Signs Temp 98.8 F 02/15/19 00:18 Pulse 85 02/15/19 04:02 Resp 18 02/15/19 04:02 BP 102/61 02/15/19 04:02 Pulse Ox 98 02/15/19 04:02 - Medical History PMH: Anxiety, Arthritis (b/l knees L > R), CAD, Cardia Arrhythmia, CHF, COPD, Diabetes, Emphysema, HTN, Hypercholesterolemia, Hyperlipidemia, Peripheral Edema Denies: Chronic Kidney Disease - Surgical History Surgical History: Appendectomy, Coronary Stent (15 yrs ago), Pacemaker (L upper chest) - Family History Family History: States: Unknown Family Hx - Social History Current smoker - smoking cessation education provided: Yes (Light Smoker < 10 Cigarettes Daily) Alcohol: Social - Immunization History Hx Tetanus Toxoid Vaccination: No Hx Influenza Vaccination: No Hx Pneumococcal Vaccination: No - Home Medications Home Medications: Ambulatory Orders Medication Instructions Recorded Insulin Aspart, Recombinant 0 unit SC ACHS unit 02/14/19 [Novolog] Pantoprazole [Protonix Inj] 40 mg IVP DAILY vial 02/14/19 Temazepam [Restoril] 15 mg PO ONCE cap 02/14/19 - Allergies Allergies/Adverse Reactions: Allergies Allergy/AdvReac Type Severity Reaction Status Date / Time No Known Allergies Allergy Verified 02/15/19 00:18 Review of Systems ROS Statement: Except As Marked, All Systems Reviewed And Found Negative Constitutional: Negative for: Fever Psych: Negative for: Suicidal ideation, Other (homicidal ideation ) Physical Exam - Reviewed Nursing Documentation Reviewed: Yes Vital Signs Reviewed: Yes - Physical Exam Appears: Negative for: Well (somnolent; intoxicated ) Head Exam: Positive for: ATRAUMATIC, NORMAL INSPECTION, NORMOCEPHALIC Skin: Positive for: Normal Color, Warm, Dry Eye Exam: Positive for: Normal appearance, EOMI ENT: Positive for: Normal ENT Inspection Neck: Positive for: Normal, Painless ROM Cardiovascular/Chest: Positive for: Regular Rate, Rhythm, Other (Patient woke up stating he had CP which is why EKG was done ) Respiratory: Positive for: Normal Breath Sounds. Negative for: Respiratory Distress Gastrointestinal/Abdominal: Positive for: Normal Exam, Soft. Negative for: Tenderness Back: Positive for: Normal Inspection Extremity: Positive for: Normal ROM (Extremity of arms is normal ) Neurological/Psych: Positive for: Awake, Alert, Normal Tone, Oriented (x3) - Laboratory Results Result Diagrams: 02/15/19 05:30 02/15/19 08:32 - ECG ECG Rhythm: Positive for: Sinus Rhythm, Left Bundle Branch Block Interpretation Of Abn EKG: occasional premature ventricular complex and left axis deviation Rate: 64 O2 Sat by Pulse Oximetry: 98 (RA) Pulse Ox Interpretation: Normal Medical Decision Making Medical Decision Making: Time: 4 Impression: alcohol intoxication Plan: Alcohol serum Accucheck Glucose, POC Tylenol 650mg Reevaluation Time: 0450 CBC w/ Differential CMP Drug screen EKG: Sinus rhythm with occasional premature ventricular complex with 64 bpm. There is left axis deviation and left bundle branch block. Compared to January there was a bundle branch 07:[address] Holm pending labs /reeval Scribe Attestation: Documented by Judah Hurtado, acting as a scribe for Kuldip Han MD Provider Scribe Attestation: All medical record entries made by the Scribe were at my direction and pe rsonally dictated by me. I have reviewed the chart and agree that the record accurately reflects my personal performance of the history, physical exam, medical decision making, and the department course for this patient. I have also personally directed, reviewed, and agree with the discharge instructions and disposition. Disposition - Clinical Impression Clinical Impression: Alcohol abuse - Patient ED Disposition Is Patient to be Admitted: Transfer of Care - Disposition Referrals: [facility] [Outside] - 02/16/19 Disposition: Transfer of Care Disposition Time: 07:00 Condition: STABLE Additional Instructions: Return if not better in 3 days. Instructions: Alcohol Use - When Is Drinking a Problem? Patient Signed Over To: Romaine Holm (pending labs )
[2019-02-15 07:09] VITALS: PULSE 64
[2019-02-15 07:10] LABS: BARBITURATES, UR NEGATIVE (NEGATIVE); BENZODIAZEPINES, UR POSITIVE (NEGATIVE); OPIATES, UR POSITIVE (NEGATIVE); PHENCYCLIDINE, UR NEGATIVE (NEGATIVE)
--- NOTE | 2019-02-15 09:28 | ED PDOC ---
- Laboratory Results Result Diagrams: 02/15/19 05:30 - ECG O2 Sat by Pulse Oximetry: 98 (RA) Pulse Ox Interpretation: Normal - Progress ED Course And Treament: 1019: Stable. AAOx3. Ambulated with no issues. Tolerated PO. No pain. Mult iple ER visits. No chest pain. Disposition Counseled Patient/Family Regarding: Studies Performed, Diagnosis, Need For Followup - Clinical Impression Clinical Impression: Alcohol abuse - POA Present On Arrival: None - Disposition Referrals: [facility] [Outside] - 02/16/19 Disposition: Routine/Home Disposition Time: 10:20 Condition: STABLE Additional Instructions: Return if not better in 3 days. Instructions: Alcohol Use - When Is Drinking a Problem?
[2019-02-15 10:11] LABS: ALB/GLOB RATIO 0.7 (1.0-2.1); ALBUMIN 3.2 g/dL (3.5-5.0); CALCIUM 8.1 mg/dL (8.4-10.2)
[2019-02-15 10:18] LABS: TROPONIN I 0.021 ng/mL (0.00-0.120)
--- NOTE | 2019-02-23 14:23 | CARD ---
APPROVED REPORT Date of service: 02/15/2019 EKG Measurement Heart [id number] <Conclusion> Sinus rhythm with occasional premature atrial complexes Left axis deviation Left bundle branch block Abnormal ECG
== END 2019-02-15 10:38 | disposition home or self-care (01) ==
LOC: H.ER 00:11
DX: F10.129 Alcohol abuse with intoxication, unspecified (principal); Y90.6 Blood alcohol level of 120-199 mg/100 ml; E11.9 Type 2 diabetes mellitus without complications; F17.210 Nicotine dependence, cigarettes, uncomplicated; I11.0 Hypertensive heart disease with heart failure; J44.9 Chronic obstructive pulmonary disease, unspecified; Z79.4 Long term (current) use of insulin; Z95.0 Presence of cardiac pacemaker; Z95.5 Presence of coronary angioplasty implant and graft